=== PATIENT | male | born 1985 | race Caucasian/White ===

== ENCOUNTER 2018-05-16 18:50 | Outpatient (REF) | payer OTHER, SELFPAY ==
[2018-05-16 19:42] LABS: ALT 25 U/L (12-78); AST 17 U/L (15-37); Alkaline Phosphatase 61 U/L (46-116); Anion Gap 7.8 mmol/L (3-11); BUN 16 mg/dL (7-18); Bilirubin, Total 0.3 mg/dL (0.2-1.0); CO2 30.2 mmol/L (21.0-32.0); CREATININE 0.78 mg/dL (0.70-1.30); Calcium 9.3 mg/dL (8.5-10.1); Chloride 103 mmol/L (98-107); Cholesterol 138 mg/dL (50-200); Glucose 93 mg/dL (70-100); HDL Cholesterol 59 mg/dL (40-60); LDL CHOLESTEROL 72 mg/dL (<100); Potassium 4.4 mmol/L (3.5-5.1); Sodium 141 mmol/L (136-145); Total Protein 7.1 g/dL (6.4-8.2)
[2018-05-16 20:31] LABS: Triglyceride < 25 mg/dL (30-150)
== END 2018-05-16 19:10 ==
LOC: LBN 18:50
PROVIDERS: PCP Family Medicine; Visit Provider Family Medicine
DX: Z82.49 Family history of ischemic heart disease and other diseases of the circulatory system (principal)
CPT/HCPCS: 80053; 80061; 83721

== ENCOUNTER 2019-06-11 11:24 | Outpatient (REF) | payer OTHER, SELFPAY ==
[2019-06-11 13:06] LABS: BUN 9 mg/dL (7-18); CREATININE 0.82 mg/dL (0.70-1.30); Calcium 9.5 mg/dL (8.5-10.1); Chloride 102 mmol/L (98-107); Glucose 86 mg/dL (74-106); Potassium 4.6 mmol/L (3.5-5.1); Sodium 141 mmol/L (136-145)
== END 2019-06-11 11:44 ==
LOC: LBO 11:24
PROVIDERS: PCP Family Medicine; Visit Provider Student in an Organized Health Care Education/Training Program
DX: Z79.1 Long term (current) use of non-steroidal anti-inflammatories (NSAID) (principal)
CPT/HCPCS: 36415; 80048

== ENCOUNTER 2019-06-11 11:36 | Outpatient (CLI) | payer OTHER, SELFPAY ==
--- NOTE | 2019-06-11 11:56 | DI.RAD_ITS ---
EXAM: XR SHOULDER RT COMPLETE 2+V CLINICAL HISTORY: Worsening shoulder pn, r/o bony pathology M25.511 PAIN RT SHOULDER TECHNIQUE: COMPARISON: No exams were available for comparison FINDINGS: Five views were obtained. No bony or soft tissue abnormality seen. IMPRESSION:
== END 2019-06-11 11:56 ==
PROVIDERS: PCP Family Medicine; Visit Provider Student in an Organized Health Care Education/Training Program
DX: M25.511 Pain in right shoulder (principal)
CPT/HCPCS: 73030

== ENCOUNTER 2020-04-13 02:26 | Emergency (ER) | payer OTHER, SELFPAY ==
[2020-04-13 02:30] VITALS: BP 134/80; PULSE 108; RESP 18; TEMP 36.5; O2SAT 97
--- NOTE | 2020-04-13 02:30 | DI.CT_ITS ---
EXAM: CT HEAD CERVICAL SPINE WO CLINICAL HISTORY: intoxicated, head laceration. TECHNIQUE: Imaging Protocol: Axial computed tomography images with coronal and sagittal reformatted images were created and reviewed COMPARISON: No exams were available for comparison FINDINGS: BRAIN: There are no skull fractures nor fluid in the visualized paranasal sinuses. There is no evidence of intracranial hemorrhage, mass effect, or shift of midline structures. There are no extra-axial fluid collections. The ventricles are not enlarged or shifted and there is no blo od within the ventricular system nor within the basal cisterns. CERVICAL SPINE: There is no evidence of fracture nor listhesis. No significant prevertebral soft tissue swelling. N o facet malalignment evident. No significant osseous lesions evident. IMPRESSION: No acute intracranial findings on this noninfused CT scan of the brain. No evidence of cervical spine fracture, malalignment, nor acute compromise of the cervical spinal can al. RADIATION DOSE DELIVERED: 1,084.77mGy.cm Total DLP DATA REPOSITORY: All CT scans at this facility are submitted to the National Radiology Data Registry (NRDR) Dose Index Registry (DIR) with the [employer] (ACR). RADIATION OPTIMIZATION: All CT scans at this facility use at least one of these dose optimization te chniques: automated exposure control; mA and/or kV adjustment per patient size (includes targeted exa ms where dose is matched to clinical indication); or iterative reconstruction.
--- NOTE | 2020-04-13 02:34 | ED.GENADUL_ITS ---
Discharge Plan Disposition Patient Disposition: HOME Condition: Stable Discharge Details Clinical Impression: Alcohol intoxication, Laceration of head, Blunt head trauma Primary Care Provider: Preet Clancy ED Provider: William Valdes Discharge Instructions Instructions: Staple Care (ED) Additional Instructions: return in 7 days for evaluation for staple removal try to limit alcohol use to 1-2 drinks daily if you have severe worsening pain or new pain such as chest pain or abdominal pain return to the emergency department Medical Decision Making 34 yo male with no reported significant medical history comes in with his friend after he fell and hit his head. He had alcohol tonight and won't say how much. He apparently got out of the back of his friends car, slipped on ice and hit the back of his head on a house causing a laceration so his friend drove him here and reports no loc. He arrives intoxicated with smell of alcohol, unsteady gait. Moving all extremities without pain, no chest or back tenderness and no abdominal tenderness. Does have a 2cm laceration to posterior scalp that is not bleeding now. Suspect alcohol intoxication with lac but will image head and c spine to evaluate for traumatic injury given his intoxicated states. ct negative and 3 berto placed, released into care of his friend Jarad return precautions given Differential Diagnosis Differential Diagnosis: tbi, concussion, head laceration, alcohol intoxication Medical Records Medical records reviewed: Yes I reviewed the patient's medical records. Imaging Data Radiologic Study: Attestation: I personally reviewed and interpreted this imaging study as follows: Imaging: CT Scan Radiologist's impression: no acute findings HPI General Mode of arrival: ambulatory (unsteady gait) . Date/Time Provider Initiated Documentation: 04/13/20 02:27 . Limitations to Documentation: other (intoxicated) . Information obtained by: patient and family (friend) . History of Present Illness 34 year old M presents to the emergency department with the chief complaint of head laceration, described as moderate, Patient started experiencing this hour(s) (1) and it has been constant. No relieving factors improve symptom(s), No exacerbating factors reported . Patient did receive the following treatments prior to arrival, none Related Data Allergies Allergy/AdvReac Type Severity Reaction Status Date / Time No Known Allergies Allergy Verified 04/13/20 03:07 Review of Systems All systems reviewed & are unremarkable except as noted in HPI and below Constitutional Constitutional: Denies chills and Denies fever(s) Cardiovascular Cardiovascular: Denies chest pain and Denies dyspnea Respiratory Respiratory: Denies cough and Denies dyspnea Gastrointestinal Gastrointestinal: Denies abdominal pain, Denies nausea and Denies vomiting Musculoskeletal Musculoskeletal: Denies joint swelling Psychiatric Psychiatric: Denies depression [facility] Medical History (Updated 04/13/20 @ 02:40 by William Valdes MD) Tobacco use disorder Family History Father Alcohol abuse Mother Anxiety Depression Maternal Grandfather Heart disease Hyperlipidemia Hypertension Paternal Grandfather Heart disease Hyperlipidemia Hypertension Maternal Grandmother Diabetes Paternal Uncle Cancer Social History Smoking/Tobacco Use Status: Current every day Tobacco Type: cigarettes Quit status: not considering quitting Smoking risk assessment performed?: Yes Alcohol Intake: current Alcohol Intake frequency: 3 or more drinks per day Alcohol type: beer Substance use type: does not use Adopted: No Household members: significant other Number of Children: 0 current occupation: [employer] What type of physical activity do you participate in: walking and other Details: hiking Seatbelt use: always Do you feel safe at home: Yes Do you feel safe in your relationship?: Yes Exam Const General: no acute distress Orientation: alert HENMT Head: no palpable skull fracture Ears: external ears normal General nose exam: external nose normal Mouth: moist mucous membranes Eyes General: appearance normal, both eyes and all related structures Neck Neck: normal visual inspection Resp Effort & Inspection: normal respiratory effort and able to speak in complete sentences Cardio Rate: regular rate Skin General skin exam: no rashes or lesions noted Neuro General: patient alert Extrem General: normal to inspection Procedures Laceration Laceration 1: Site: scalp Size (cm): 2 Description: linear Depth: simple, single layer Pre-repair: wound explored and irrigated extensively Skin layer closed with: other (3 berto)
--- NOTE | 2020-04-13 03:07 | DI.VRAD_ITS ---
PROCEDURE INFORMATION: Exam: CT Head Without Contrast Exam date and time: 04/13/2020 2:47 AM Age: 34 years old Clinical indication: Injury or trauma; Fall; Blunt trauma (contusions or hematomas); Consciousness not specified; Injury date: 04/13/20; Injury details: Fell on ice, intoxicated, head laceration TECHNIQUE: Imaging protocol: Computed tomography of the head without contrast. Radiation optimization: All CT scans at this facility use at least one of these dose optimization techniques: automated exposure control; mA and/or kV adjustment per patient size (includes targeted exams where dose is matched to clinical indication); or iterative reconstruction. COMPARISON: No relevant prior studies available. FINDINGS: Brain: Normal. No hemorrhage. Unremarkable white matter. No mass effect. Cerebral ventricles: No ventriculomegaly. Bones/joints: Unremarkable. No acute fracture. Paranasal sinuses: Visualized sinuses are unremarkable. No fluid levels. Mastoid air cells: Visualized mastoid air cells are well aerated. Soft tissues: Unremarkable. IMPRESSION: No acute intracranial abnormality. PROCEDURE INFORMATION: Exam: CT Cervical Spine Without Contrast Exam date and time: 04/13/2020 2:47 AM Age: 34 years old Clinical indication: Injury or trauma; Fall; Blunt trauma (contusions or hematomas); Consciousness not specified; Injury date: 04/13/20; Injury details: Fell on ice, intoxicated, head laceration TECHNIQUE: Imaging protocol: Computed tomography images of the cervical spine without contrast. Radiation optimization: All CT scans at this facility use at least one of these dose optimization techniques: automated exposure control; mA and/or kV adjustment per patient size (includes targeted exams where dose is matched to clinical indication); or iterative reconstruction. COMPARISON: No relevant prior studies available. FINDINGS: Vertebrae: No acute fracture. Normal alignment. C2-C3: No significant disc protrusion. No severe spinal canal stenosis. No significant neural foraminal narrowing. C3-C4: No significant disc protrusion. No severe spinal canal stenosis. No significant neural foraminal narrowing. C4-C5: No significant disc protrusion. No severe spinal canal stenosis. No significant neural foraminal narrowing. C5-C6: No significant disc protrusion. No severe spinal canal stenosis. No significant neural foraminal narrowing. C6-C7: No significant disc protrusion. No severe spinal canal stenosis. No significant neural foraminal narrowing. C7-T1: No significant disc protrusion. No severe spinal canal stenosis. No significant neural foraminal narrowing. Soft tissues: Unremarkable. Lungs: Lung apices are normal. IMPRESSION: No acute findings. Dictated and Authenticated by: Bruno العلي MD. Ordering:FANY Thomas MD
[2020-04-13 03:18] VITALS: BP 134/80; PULSE 108; RESP 18; TEMP 36.5; O2SAT 97
== END 2020-04-13 03:20 | disposition home or self-care (01) ==
PROVIDERS: Emergency Provider Emergency Medicine; PCP Family Medicine
DX: S01.01XA Laceration without foreign body of scalp, initial encounter (principal); F10.120 Alcohol abuse with intoxication, uncomplicated; W00.0XXA Fall on same level due to ice and snow, initial encounter; W22.8XXA Striking against or struck by other objects, initial encounter
CPT/HCPCS: 99284; 70450; 72125

== ENCOUNTER 2020-07-28 02:42 | Outpatient (CLI) | payer OTHER, SELFPAY ==
[2020-07-29 01:27] LABS: COVID-19 RT-PCR UVMMC Result Negative (Negative)
== END 2020-07-28 02:43 | disposition home or self-care (01) ==
PROVIDERS: PCP Family Medicine; Visit Provider Family Medicine
DX: Z20.822 Contact with and (suspected) exposure to COVID-19 (principal)
CPT/HCPCS: U0003

== ENCOUNTER 2021-03-07 09:05 | Outpatient (CLI) | payer OTHER, SELFPAY ==
[2021-03-07 21:52] LABS: COVID-19 RT-PCR UVMMC Result Negative (Negative)
== END 2021-03-07 09:06 | disposition home or self-care (01) ==
PROVIDERS: PCP Family Medicine; Visit Provider Nurse Practitioner Family
DX: Z20.822 Contact with and (suspected) exposure to COVID-19 (principal)
CPT/HCPCS: U0003

== ENCOUNTER 2022-10-29 06:14 | Day surgery (SDC) | payer OTHER, SELFPAY ==
[2022-10-29] VITALS (11 sets, daily range): BP systolic 92–126; BP diastolic 49–88; PULSE 52–75; RESP 13–21; TEMP 36.3–36.8; O2SAT 96–98; BMI 19.7
[2022-10-29] MEDS: Lactated Ringers 1,000 ML 80 ML IV (06:58)
--- NOTE | 2022-10-29 06:58 | HPE_ITS ---
Date of service: 10/29/22 Time of Service: 06:59 Assessment and Plan Assessment and plan (1) Varicocele: Status: Acute Assessment and plan: Since he is symptomatic, we will move ahead with left varicocelectomy. History of Present Illness History of Present Illness Chief Complaint: Left varicocele Narrative: This is a 37-year-old gentleman who is known to our office as he had a vasectomy about 8 months ago. He comes in now with complaints of left sided scrotal discomfort.? He actually had an episode of left-sided scrotal discomfort even before the vasectomy.? The discomfort improved on its own. In the past 6 weeks, he has had more and more left-sided pain.? The pain seems worse when he lifts something heavy.? He tells me that just the other day, he lifted a 45 kg box at work and had to be sent home afterwards because of the pain. The pain will extend up into the groin.? He is not certain if the pain crosses into his leg as he has frequent leg cramps anyway. He has not seen any external abnormalities such as redness or bruising.? While lifting tends to make the pain worse, ice and rest makes things better. Ultrasound documents the presence of a left varicocele Review of Systems Narrative: No fevers or chills No vision change or dysphasia No diabetes or thyroid No shortness of breath, cough or hemoptysis No chest pain or palpitations No nausea, vomiting, hepatitis, ulcers, jaundice, diarrhea or constipation No seizures, strokes or peripheral neuropathy No bleeding disorders or anemia No gout PFSH All Active Problems Varicocele (Acute) Groin strain (Acute) Nerve entrapment syndrome of right upper extremity (Acute) Numbness (as if asleep) with RT shoulder pain & upper back pain, 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 Tobacco use disorder (Chronic) Medical History Alcohol intoxication blunt head trauma Post concussion syndrome Family History Father Alcohol abuse Mother Anxiety Depression Maternal Grandfather Heart disease Hyperlipidemia Hypertension Paternal Grandfather Heart disease Hyperlipidemia Hypertension Alcohol abuse Maternal Grandmother Diabetes Paternal Uncle Cancer Paternal Grandmother Diabetes Brother Anxiety Drug abuse Social History Smoking/Tobacco Use Status: Current every day Tobacco Type: cigarettes Tobacco: How many years used: 15 Quit status: considering quitting Smoking risk assessment performed?: Yes Alcohol Intake: current Alcohol Intake frequency: 3 or more drinks per day Alcohol type: beer Substance use type: does not use Adopted: No Caregiver/Support person: No Household members: spouse and children Housing: house Number of Children: 1 Communication Needs: None Education Level: high school Do you need help understanding health information?: Rarely 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 Pets and animals: Yes Pets and animals: dog(s) Sexually active: Yes Do you think of yourself as: straight/heterosexual Current gender identity: male What is your relationship status?: How often do you talk on the phone with friends or family?: three or more times per week How often do you get together with friends or relatives?: twice per week Do you belong to any clubs or organized social groups?: no Panel score (0-1 are the most socially isolated patients): 2 What type of physical activity do you participate in: walking and other Details : hiking Duration: 45-60 minutes/day Frequency: daily Alee/Methodist: None Special alee needs: No Seatbelt use: always Helmet use: Yes Drive intox or ride w/intox team cdl driver: No Do you feel safe at home: Yes Do you feel safe in your relationship?: Yes Meds Allergies and Home Medications Allergies Allergy/AdvReac Type Severity Reaction Status Date / Time No Known Allergies Allergy Verified 10/12/22 10:35 Home Medications Medication Instructions Recorded Confirmed Type ketorolac 10 mg tablet 10 mg PO PRN PRN 10/26/22 10/29/22 History Exam Const General: cooperative Resp Effort & Inspection: normal respiratory effort Auscultation: clear to auscultation bilaterally Cardio Rate: regular rate Rhythm: regular rhythm GI Inspection: normal to inspection Percussion: normal to percussion Scrotum: varicocele (left) Neuro General: patient alert, patient awake and patient oriented x3 Results Last Vital Signs Temp 36.8 C 10/29/22 06:26 Pulse 75 10/29/22 06:26 Resp 16 10/29/22 06:26 BP 126/88 10/29/22 06:26 Pulse Ox 97 10/29/22 06:26 Time Spent Time spent with Patient: <40 minutes Time was spent: other
--- NOTE | 2022-10-29 06:58 | ANES.PREOP_ITS ---
General Info Date of Service Date Performed: 10/29/22 Height: 5 ft 11 in Weight: 64.2 kg Body Mass Index (BMI): 19.7 Surgical Procedure: Operation Date: 10/29/22 07:40 Proposed Procedure Side Surgeon p Varicocelectomy Left Luigi Juan MD Meds Allergies and Home Medications Allergies Allergy/AdvReac Type Severity Reaction Status Date / Time No Known Allergies Allergy Verified 10/12/22 10:35 Home Medication Medication Instructions Recorded ketorolac 10 mg tablet 10 mg PO PRN PRN 10/26/22 Current Visit Medications: Current Medications Generic Name Dose Route Start Last Admin Trade Name Freq PRN Reason Stop Dose Admin Ringer's Solution 1,000 mls @ 80 mls/hr 10/29/22 06:00 IV 10/29/22 23:59 INFUSION SEAN Cefazolin Sodium/Dextrose 2 gm in 50 mls @ 100 mls/hr 10/29/22 06:00 Ancef Duplex IVPB 10/29/22 23:59 PREOP SEAN IV Miscellaneous Supplies 1 each 10/29/22 06:00 Iv Access IV 10/29/22 23:59 DIRECTED SEAN Sodium Chloride 0 ml 10/29/22 06:00 Normal Saline Flush 10 Ml Syr IV 10/29/22 23:59 PRN PRN Sodium Chloride 0 ml 10/29/22 06:00 Normal Saline 10 Ml Vial IJ 10/29/22 23:59 DIRECTED PRN Sterile Water 0 ml 10/29/22 06:00 Water,Injection,Sterile 10 Ml Vial IJ 10/29/22 23:59 DIRECTED PRN PFSH Active Problems Active Problems: Problem Status Onset Code Varicocele I86.1 Groin strain S76.219A Nerve entrapment syndrome of right upper extremity G56.91 Tobacco use disorder F17.200 Medical History Medical History Alcohol intoxication blunt head trauma Post concussion syndrome Tobacco Smoking/Tobacco Use Status: Current every day Tobacco Type: cigarettes Passive smoking exposure: Yes Alcohol Alcohol Intake: current Alcohol intake frequency: 3 or more drinks per day Alcohol type: beer Substance Use Substance use type: does not use Vital Signs and Lab Results Vital Signs Most Recent Vital Signs in EMR: Most Recent Vital Signs Temp Pulse Resp BP Pulse Ox 36.8 C 75 16 126/88 97 10/29/22 06:26 10/29/22 06:26 10/29/22 06:26 10/29/22 06:26 10/29/22 06:26 Lab Results Blood Type / Crossmatch: No Data to Display Complete Blood Count: No Data to Display Complete Metabolic Panel: No Data to Display Liver Function Panel: No Data to Display Coagulation Panel: No Data to Display Cardiac Panel: No Data to Display Arterial Blood Gas: No Data to Display Venous Blood Gas: No Data to Display Pancreas Panel: No Data to Display Thyroid Panel: No Data to Display Infectious Disease: No Data to Display Blood Cultures: No Data to Display Toxicology Panel: No Data to Display Anesthesia Assessment and Plan Anesthesia History Personal History: No History of General Anesthesia Family History: No Family History of Anesthesia Complications Exercise Tolerance Exercise Tolerance: Metabolic Equivalents>4 Pertinent Negatives Pertinent Negatives: No Symptoms of GERD, No Major Cardiovascular Symptoms or C omplaints, No Major Pulmonary Symptoms or Complaints and No History of CVA/TIA Cardiac & Pulmonary Exam Cardiac Exam: Normal S1/S2 Heart Sounds Pulmonary Exam: Clear Bilateral Breath Sounds Implantable Cardiac Device Does patient have a Pacemaker or an ICD?: No Airway Exam Known Difficult Airway: No Mallampati Class: 2 Mouth Opening: Normal (> 3cm) Thyromental Distance: Greater than 3 cm Neck Range of Motion: Full ROM Neck Circumference: Normal Teeth Condition: Normal Dentition and Loose or Chipped (tooth #23 loose, still a baby tooth) ASA Classification ASA Score: ASA 2 Emergency Case?: No NPO Status NPO Status: NPO Clears >2 hours, Solids >8 hours Anesthesia Plan Resuscitation Status: Full Code Anesthesia Technique: General Anesthesia Airway Planned: LMA Monitors Used: Standard Monitors Preoperative Comments:: Smoker
[2022-10-29] MEDS: ceFAZolin 2 GM/50 ML BAG IVPB (07:39)
[2022-10-29] MEDS: Bupivacaine 0.25% Pres-Free 30 ML VIAL (08:12)
--- NOTE | 2022-10-29 08:24 | W.PM.DSUDISC ---
Date of service: 10/29/22 Time of Service: 08:24 Discharge Plan Disposition Patient Disposition: Home Condition: Stable Discharge Details Reason For Visit: varicocele Attending Provider: Luigi Juan Primary Care Provider: Preet Clancy Home Meds and New Rx's Prescriptions: New tramadol 50 mg tablet 50 mg PO Q6H PRNQty: 20 0RF No Action ketorolac 10 mg tablet 10 mg PO PRN PRN Discharge Instructions Additional Instructions: no lifting over 10 to 20 pounds for 2 weeks followup appt @ 2 to 3 weeks Activity:: no lifting over 10 pounds for 2 weeks Remove Dressings/Wound Care:: 24 hours Shower/Bathe:: 24 hours Diet:: As Tolerated Discharge Orders Discharge Orders: Discharge Order (Routine); Ordered 10/29/22 Ordered By: Luigi Juan DS: Diagnosis Discharge Diagnosis (1) Varicocele: Status: Acute
--- NOTE | 2022-10-29 08:28 | W.PM.OP ---
Date of service: 10/29/22 Time of Service: 08:28 Operative Note Operative Note DATE OF PROCEDURE: 10/29/22 PRE-OP DIAGNOSIS: Left varicocelectomy POST-OP DIAGNOSIS: same PROCEDURE: left varicocelectomy SURGEON: Luigi Juan ANESTHESIA TYPE: Local By Surgeon and General LMA/ETT Refer to Anesthesia Record ESTIMATED BLOOD LOSS: 10 PATHOLOGY: none sent COMPLICATIONS: None Patient was transported to: PACU Implants: none Indications: This is a 37-year-old gentleman who has a history of a left scrotal discomfort. He had a vasectomy in the past, but his pain actually preceded the vasectomy. On evaluation, he was found to have a left varicocele that seemed to be the trigger for his pain. He presents for varicocelectomy Findings: Multiple dilated left spermatic veins Procedure Description: The patient was brought to the operating room on 10/29/2022. After successful induction of general anesthesia, he was placed in the supine position. He was given a dose of preoperative IV antibiotics. His lower abdomen and genitalia were prepped and draped. The left inguinal incision was made and extended down through the subcutaneous fat until the aponeurosis of the external oblique muscle was identified. The aponeurosis was opened in the direction of its fibers and the spermatic cord was visualized below the aponeurosis. The spermatic cord was secured with a Jeannie drain. We began our dissection of the spermatic cord anteriorly until we came down upon multiple dilated spermatic veins. The dissection was performed using both blunt and sharp dissection. Each dilated vein was isolated with a right angle and divided between 4-0 silk sutures. The vas deferens and spermatic artery were spared. The dissection was performed using loupe magnification. At the completion of the procedure, no additional dilated veins were identified. The cord was released and brought back beneath the aponeurosis of the external oblique. A cord block was performed using quarter percent Marcaine. The aponeurosis was closed using a running 3-0 Vicryl suture. The skin was closed with a subcuticular 4-0 Vicryl suture. Skin glue was then applied to the wound. The patient tolerated this procedure well with no complications.
--- NOTE | 2022-10-29 09:07 | W.ANESPOSTOP ---
Postoperative Evaluation Date, Time and Location Date Performed: 10/29/22 Time Performed: 09:08 Patient Location: PACU Vital Signs Most Recent Imported Vital Signs: Most Recent Vital Signs Temp Pulse Resp BP Pulse Ox 36.6 C 64 21 105/64 98 10/29/22 09:00 10/29/22 09:00 10/29/22 09:00 10/29/22 09:00 10/29/22 09:00 Pain Score Most Recent Pain Score: Most Recent Pain Score Pain Level 7 10/29/22 09:00 Assessment Mental Status: Awake (Alert & Oriented to Patient Baseline) Airway and Respiratory Function: Patent airway with normal (patient baseline) respiratory exam Cardiovascular Function: Hemodynamically Stable Hydration Status: Adequately Hydrated Nausea & Vomiting: No Nausea or Vomiting Pain: Pain is Moderate or Severe Postoperative Pain Management: Pain being addressed with medication Peripheral Nerve Block: Patient did not receive a nerve block
[2022-10-29] MEDS: HYDROmorphone 2 MG/ML SYR IVP (09:08)
[2022-10-29] MEDS: Normal Saline 10 ML VIAL IJ (09:09)
== END 2022-10-29 10:25 | disposition home or self-care (01) ==
PROVIDERS: PCP Family Medicine; Visit Provider Urology
PROC: (CPT 55530; principal; 2022-10-29 07:30)
DX: I86.1 Scrotal varices (principal); F17.210 Nicotine dependence, cigarettes, uncomplicated
CPT/HCPCS: 55530; J0690; J1100; J1170; J1885; J2001; J2405; J2704

== ENCOUNTER 2023-05-01 18:46 | Emergency (ER) | payer OTHER, SELFPAY ==
[2023-05-01] VITALS (76 sets, daily range): BP systolic 119–151; BP diastolic 76–90; PULSE 62–88; RESP 12–25; TEMP 37–37.2; O2SAT 96–100
--- NOTE | 2023-05-01 18:45 | RT.EKG_ITS ---
APPROVED REPORT Exam: Resting ECG Reason for Exam: Chest pain Patient Location: E HR:78 bpm ECG Measurements Heart Rate 78 AXIS TX 121 P 77 QRSd 99 QRS 67 QT 365 T 70 QTc 415 Conclusion Sinus rhythm...normal P axis, V-rate 60- 99 ST elev, probable normal early repol pattern...ST elevation, age<55 sinus rhythm, normal axis, normal intervals, non ischemic
--- NOTE | 2023-05-01 18:45 | DI.RAD_ITS ---
Exam(s) XR CHEST 2V PA LATERAL EXAM: XR CHEST 2V PA LATERAL CLINICAL HISTORY: chest pain, sob TECHNIQUE: 2D digital imaging was performed. COMPARISON: CR RIGHT RIBS TO INCLUDE CXR from 06/09/2007 FINDINGS: Leads overlie the chest. HEART: Normal size. Aorta: Not dilated. PULMONARY VASCULATURE: Normal. LUNGS: Clear. PLEURAL SPACE: No pleural effusion or pneumothorax. BONE:Unremarkable for age. Soft tissues: Unremarkable. IMPRESSION: No acute abnormality. DATA REPOSITORY: RADIATION DOSE DELIVERED:
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
[2023-05-01] MEDS: Aspirin 81 MG CHEW 324 MG CH (19:18)
[2023-05-01] MEDS: ACETAMINOPHEN 1,000 MG/100 ML BTL 400 MG IVPB (19:19)
[2023-05-01] MEDS: Ketorolac 15 MG/ML VIAL IVP (19:20)
[2023-05-01 19:21] LABS: Abs Immature Grans 0.02 10^3/uL (0.0-0.06); Absolute Basophil Count 0.11 10^3/uL (0.0-0.2); Absolute Eosinophil Count 0.14 10^3/uL (0.0-0.7); Absolute Monocyte Count 0.87 10^3/uL (0.1-0.8); Absolute Neutrophil Count 5.59 10^3/uL (1.2-6.7); Basophils % 1.2; Eosinophils % 1.6; HCT 41.3 % (40.0-50.0); HGB 14.6 g/dL (13.5-17.5); Immature Grans % 0.2; Lymphocytes % 25.5; MCHC 35.4 % (32.0-36.0); MCV 93 fL (80-95); MPV 9.7 fL (8.0-11.0); Monocytes % 9.6; Neutrophils % 61.9; Platelet Count 209 10^3/uL (130-400); RBC 4.42 10^6/uL (4.36-5.78); RDW 11.9 % (11.8-14.1); RDW-SD 41.4 fL; WBC 9.03 10^3/uL (4.4-10.8)
[2023-05-01 19:41] LABS: ALT 29 U/L (16-63); AST 28 U/L (15-37); Albumin 4.2 g/dL (3.4-5.0); Alkaline Phosphatase 72 U/L (46-116); Anion Gap 9.1 mmol/L (3-11); BUN 9 mg/dL (7-18); Bilirubin, Total 0.4 mg/dL (0.2-1.0); CO2 28.9 mmol/L (21.0-32.0); CREATININE 0.8 mg/dL (0.70-1.30); Calcium 9.3 mg/dL (8.5-10.1); Chloride 99 mmol/L (98-107); Estimated GFR 118.36 (mL/min/1.73m2); Glucose 81 mg/dL (74-106); Magnesium 1.9 mg/dL (1.8-2.4); Potassium 3.4 mmol/L (3.5-5.1); Sodium 137 mmol/L (136-145); Total Protein 7.8 g/dL (6.4-8.2); Troponin I < 50 ng/L (<or=60)
[2023-05-01 19:48] LABS: D-Dimer 218 ng/mlFEU (<500)
[2023-05-01 19:59] LABS: NT-proBNP 29 pg/mL (<300)
[2023-05-01 20:02] LABS: Bilirubin Negative (Negative); Blood Negative (Negative); Clarity Clear (Clear); Glucose Negative (Negative); Ketones Negative (Negative); Leukocyte Esterase Negative (Negative); Nitrite Negative (Negative); Specific Gravity <= 1.005 (1.005-1.025); Urobilinogen 0.2 mg/dL (Up to 0.2); pH 6.5 (5-8)
--- NOTE | 2023-05-01 20:17 | DI.VRAD_ITS ---
PROCEDURE INFORMATION: Exam: XR Chest Exam date and time: 05/01/2023 7:35 PM Age: 37 years old Clinical indication: Shortness of breath; Chest wall pain TECHNIQUE: Imaging protocol: Radiologic exam of the chest. Views: 2 views. COMPARISON: CT HEAD CERVICAL SPINE WO 04/13/2020 2:44 AM FINDINGS: Lungs: Normal pulmonary expansion. Pulmonary vasculature grossly normal. No gross pulmonary infiltrates or edema pattern. Pleural spaces: No pleural effusion. No pneumothorax. Heart/Mediastinum: Heart size normal. No tracheal/mediastinal shift. Bones/joints: No acute osseous abnormalities are identified. IMPRESSION: No acute thoracic process. Dictated and Authenticated by: Jonathan Waldron MD. Ordering:MIKY Sharpe MD
--- NOTE | 2023-05-01 21:03 | DI.RAD_ITS ---
Exam(s) XR LUMBAR SPINE AP, LAT EXAM: XR LUMBAR SPINE AP, LAT CLINICAL HISTORY: right lower ext radiculopathy, low back pain. TECHNIQUE: 2D digital imaging was performed. Five views. COMPARISON: No exams were available for comparison FINDINGS: BONES: No fracture or destructive lesion. Vertebral body heights are maintained. No facet hypertroph y identified at L5-S1. DISKS: Severe narrowing at L5-S1 with prominent endplate osteophytes. The remaining intervertebral d isc spaces are maintained. ALIGNMENT: Lumbar spinal alignment is within normal limits. SOFT TISSUE: Normal. IMPRESSION: Severe degenerative changes of the L5-S1 disc. DATA REPOSITORY: RADIATION DOSE DELIVERED:
--- NOTE | 2023-05-01 21:06 | DI.VRAD_ITS ---
PROCEDURE INFORMATION: Exam: XR Lumbosacral Spine Exam date and time: 05/01/2023 8:54 PM Age: 37 years old Clinical indication: Patient HX: Right lower ext radiculopathy, low back pain TECHNIQUE: Imaging protocol: Radiologic exam of the lumbosacral spine. Views: 2 or 3 views. COMPARISON: No relevant prior studies available. FINDINGS: Bones/joints: No fracture. Normal alignment. Severe disc degenerative changes L5-S1 with disc space narrowing and moderate anterior spurring. No pars defects. SI joints are unremarkable. Soft tissues: No gross soft tissue abnormalities. Gastrointestinal tract: Moderate bowel gas. IMPRESSION: 1. Severe disc degenerative changes L5-S1. 2. No evidence of fracture or traumatic subluxation. Dictated and Authenticated by: Jonathan Waldron MD. Ordering:MIKY Sharpe MD
[2023-05-01] MEDS: Normal Saline Flush 10 ML SYR IVP (21:29)
[2023-05-01] MEDS: Lidocaine 5% Patch 2 PATCH TP ×2 (21:55→22:02)
[2023-05-01] MEDS: predniSONE 20 MG TAB 60 MG PO (22:00)
[2023-05-01 22:17] LABS: Troponin I < 50 ng/L (<or=60)
--- NOTE | 2023-05-02 10:19 | NUR.NOTE ---
Accessed chart to determine orders for EKG and to determine whether or not one needs to be cancelled. Nursing Note:
== END 2023-05-01 22:36 | disposition home or self-care (01) ==
PROVIDERS: Emergency Provider Nurse Practitioner Acute Care; PCP Family Medicine
DX: M47.26 Other spondylosis with radiculopathy, lumbar region (principal); R07.89 Other chest pain; F17.210 Nicotine dependence, cigarettes, uncomplicated; Z11.52 Encounter for screening for COVID-19; Z82.49 Family history of ischemic heart disease and other diseases of the circulatory system
CPT/HCPCS: 36415; 80053; 87426; 93005; 96374; 96375; 99283; 71046; 72100; 81003; 83735; 83880; 84484; 85025; 85379; 93010; J0131; J1885; J7512

== ENCOUNTER → 2023-05-21 02:04 | Outpatient (CLI) | payer OTHER, SELFPAY ==
--- NOTE | 2023-05-21 07:15 | DI.MRI_ITS ---
Exam(s) MR LUMBAR SPINE WO EXAM: MR LUMBAR SPINE WO CLINICAL HISTORY: RLE radiculopathy, DDD severe XR,leg numbness,lumbar back pain,m54.16,r20.0. TECHNIQUE: Multiplanar multisequence MRI of the Lumbar spine was performed. COMPARISON: CR,XR XR LUMBAR SPINE AP, LAT from 05/01/2023 FINDINGS: Conus medullaris is at normal level. There is no evidence of conus mass nor subjacent clumping of in trathecal nerve roots to suggest arachnoiditis. The distal thecal sac appears unremarkable.There is no evidence of Tarlov intrasacral cysts nor other significant findings within the sacral canal Bones:There are no fractures nor ominous osseous lesions in the lumbar vertebral bodies and visualize d sacrum. With respect to the individual levels... T12-L1: Unremarkable L1-2: Normal disc height and signal. There is mild central-right paracentral annular bulging. No pro minent disc herniation. No central canal stenosis nor foraminal stenosis evident at this level. No significant facet arthropathy. L2-3: Normal disc height. No disc herniation nor central canal stenosis.No foraminal stenosis.No face t arthropathy. L3-4: Normal disc height. No disc herniation or central canal stenosis.No foraminal stenosis.No face t arthropathy. L4-5: Normal disc height and signal. No disc herniation or central canal stenosis. No foraminal akhil nosis. No facet arthropathy. L5-S1: This level exhibits chronic disc space narrowing. Mild posterior annular bulging with superim posed small central subligamentous disc bulge. This does not efface the anterior thecal sac and ther e is no central canal stenosis. However, there is foraminal stenosis which is more prominent on the left side due to the vertical height loss. The exiting nerve root is impinged between the annular bu lging and overlying left pedicle. On the opposite side there is slightly milder foraminal stenosis f or similar regions. Soft tissues: There is mild hydronephrosis on the right side which appears to be due to an element o f obstruction at the UPJ IMPRESSION: 1. There is advanced chronic disc space narrowing at L5-S1 level. Mild posterior central annular bul ging and a central subligamentous small disc herniation which does not indent the thecal sac. Also a t this level is vertical foraminal stenosis, more prominent on the left side. 2. There is mild annular bulging at L1-2 level but without prominent disc herniation at this level an d no central nor foraminal stenosis. 3. There is no significant facet arthropathy in the lumbosacral spinal column. Incidentally noted is mild hydronephrosis of the right kidney which appears to be due to an element o f obstruction at the ureteropelvic junction. DATA REPOSITORY:
== END ==
PROVIDERS: PCP Family Medicine; Visit Provider Nurse Practitioner
DX: M51.17 Intervertebral disc disorders with radiculopathy, lumbosacral region; N13.39 Other hydronephrosis
CPT/HCPCS: 72148

== ENCOUNTER → 2023-06-12 00:46 | Outpatient (CLI) | payer OTHER, SELFPAY ==
--- NOTE | 2023-06-12 10:45 | DI.NM_ITS ---
Exam(s) NM MAG 3 RENOGRAM W LASIX CLINICAL HISTORY: right hydronephrosis N13.30. COMPARISON: MR MR LUMBAR SPINE WO from 05/21/2023 US US RENAL from 05/29/2023 recent lumbar spine MRI 05/21/2023 also reviewed. EXAMINATION: Dose: 10 mCi Tc-99m MAG3 Images: Immediately for 1 minute followed by dynamic for 45 minutes. 20mg Lasix was administered afte r peak uptake in the renal cortex at approximately 12 min. FINDINGS: There is normal uptake of radiopharmaceutical by the kidneys. There is rapid excretion from the left kidney with no evidence of obstruction on the left side. The time activity curve for the right kidney reveals an obstructive pattern. However, following intr avenous injection furosemide/Lasix at 20 minutes the slope of the curve turns downward, indicating ex cretion, albeit exhibiting a somewhat shallow slope. Delayed images reveal complete excretion of radiopharmaceutical from the left kidney and remaining ra diopharmaceutical activity in the right renal pelvis and infundibulum I. 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 Left kidney is unremarkable.
== END ==
PROVIDERS: PCP Family Medicine; Visit Provider Urology
DX: N13.30 Unspecified hydronephrosis (principal)
CPT/HCPCS: 78708; A9540

== ENCOUNTER 2023-11-30 21:24 | Observation (INO) | payer OTHER, SELFPAY ==
[2023-11-30] VITALS (26 sets, daily range): BP systolic 120–148; BP diastolic 70–85; PULSE 93–123; RESP 5–31; TEMP 35–38.2; O2SAT 94–99
--- NOTE | 2023-11-30 21:15 | RT.EKG_ITS ---
APPROVED REPORT Exam: Resting ECG Reason for Exam: chest pain Patient Location: E HR:126 bpm ECG Measurements Heart Rate 126 AXIS [place] 106 P 68 QRSd 89 QRS 46 QT 285 T 44 QTc 413 Conclusion Sinus tachycardia...rate> 99 Narrow complex sinus tachycardia rate of 126. Normal axis. QTc within normal limits. Short [place] inte rval at 106 ms. No obvious delta wave. Compared to prior dated last year [place] interval has shortened. No acute injury pattern.
--- NOTE | 2023-11-30 21:45 | DI.RAD_ITS ---
Exam(s) XR CHEST 2V PA LATERAL EXAM: XR CHEST 2V PA LATERAL CLINICAL HISTORY: fever TECHNIQUE: 2D digital imaging was performed of the chest. Two images were obtained. PA and lateral views were obtained. COMPARISON: CR,XR XR CHEST 2V PA LATERAL from 05/01/2023 FINDINGS: MEDIASTINUM: Normal. HEART: Normal. PULMONARY VASCULATURE: Normal. LUNGS: Clear. PLEURAL SPACE: No pleural effusion or pneumothorax. BONE:Within normal limits for the patient's age. OTHER FINDINGS:Normal. IMPRESSION: No acute pulmonary findings. DATA REPOSITORY: RADIATION DOSE DELIVERED:
[2023-11-30 22:08] LABS: Lactate 1.5 mmol/L (0.6-1.4)
[2023-11-30 22:14] LABS: Abs Immature Grans 0.02 10^3/uL (0.0-0.06); Absolute Basophil Count 0.04 10^3/uL (0.0-0.2); Absolute Eosinophil Count 0.01 10^3/uL (0.0-0.7); Absolute Lymphocyte Count 0.42 10^3/uL (1.2-3.4); Absolute Neutrophil Count 3.67 10^3/uL (1.2-6.7); Basophils % 0.9 %; Eosinophils % 0.2 %; HCT 40.7 % (40.0-50.0); Immature Grans % 0.4 %; Lymphocytes % 9.4 %; MCH 32.4 pg (27.0-33.0); MCHC 34.4 % (32.0-36.0); MCV 94 fL (80-95); MPV 10.7 fL (8.0-11.0); Monocytes % 6.7 %; Neutrophils % 82.4 %; Platelet Count 105 10^3/uL (130-400); RBC 4.32 10^6/uL (4.36-5.78); RDW 11.9 % (11.8-14.1); RDW-SD 41.1 fL; WBC 4.46 10^3/uL (4.4-10.8)
[2023-11-30 22:27] LABS: C-Reactive Protein 12.83 mg/dL (<or=0.5)
[2023-11-30 22:30] LABS: ALT 97 U/L (16-63); Albumin 3.8 g/dL (3.4-5.0); Alkaline Phosphatase 130 U/L (46-116); Anion Gap 12.3 mmol/L (3-11); BUN 18 mg/dL (7-18); Bilirubin, Total 0.66 mg/dL (0.2-1.0); CO2 25.7 mmol/L (21.0-32.0); Calcium 9.2 mg/dL (8.5-10.1); Chloride 97 mmol/L (98-107); Estimated GFR 100.03 (mL/min/1.73m2); Glucose 125 mg/dL (74-106); Magnesium 1.4 mg/dL (1.8-2.4); Potassium 3.5 mmol/L (3.5-5.1); Sodium 135 mmol/L (136-145); Total Protein 8.2 g/dL (6.4-8.2)
[2023-11-30 22:36] LABS: Troponin I 72 ng/L (< or =60)
[2023-11-30 22:44] LABS: AST 120 U/L (15-37)
[2023-11-30 22:47] LABS: Procalcitonin 0.8 ng/mL
[2023-11-30] MEDS: Aspirin 81 MG CHEW 324 MG CH (22:52)
[2023-11-30] MEDS: ACETAMINOPHEN 1,000 MG/100 ML BTL 400 MG IVPB (22:54)
[2023-11-30] MEDS: Lactated Ringers 1,000 ML 1000 ML IV (22:54)
--- NOTE | 2023-11-30 23:05 | ED.GENADUL_ITS ---
Discharge Plan Disposition Patient Disposition: Admit to [facility] Discharge Details Clinical Impression: Elevated troponin I level, Sepsis, Elevated LFTs, Thrombocytopenia, History of alcohol use Admit Date/Time: 11/30/23 23:51 Admit Provider: William Guzmán Attending Provider: William Guzmán Primary Care Provider: Preet Clancy ED Provider: Zeenat Sheldon Discharge Data Discharge Date/Time-TO BE ENTERED AT DEPARTURE: 12/01/23 01:10 HPI General Date/Time Provider Initiated Documentation: 11/30/23 21:49 . HPI Narrative: This 38-year-old male presents with report of 3 days of headache, intermittent chest discomfort persistent fever despite multiple antipyretics. Has had decreased food consumption. Patient denies any rashes or lesions. Denies current chest pain at this time. Denies any worsening shortness of breath. Did have a tick bite several weeks ago per patient. Denies any calf pain or swelling. Denies any exotic travel or swimming. Initially patient states she had some nausea vomiting and diarrhea this is since resolved on Saturday. History of alcohol approximately 616 ounce beers daily, he denies any prior history of withdrawal and has not had a drink since Saturday per patient. He states he has never had temps as high as has been experiencing, Tmax of 105 yesterday per patient. He does state he was able to go to [employer] to go shopping today. Related Data Home Medications ?Medication ?Instructions ?Recorded ?Confirmed ibuprofen 600 mg tablet 600 mg PO TID PRN pain #270 tabs 05/07/23 11/30/23 acetaminophen 500 mg tablet 1,000 mg PO Q6H PRN 11/30/23 11/30/23 Previous Rx's ?Medication ?Instructions ?Recorded ibuprofen 600 mg tablet 600 mg PO TID PRN pain #270 tabs 05/07/23 Allergies Allergy/AdvReac Type Severity Reaction Status Date / Time No Known Allergies Allergy Verified 11/30/23 21:34 General Stated Complaint: GenMedical COLE: 3 Exam Narrative Exam Narrative: Alert and oriented, appears acutely ill, pupils equal round reactive to light and accommodation, moist mucous membranes, no tympanic involvement, no meningismus, wheezes on exam but no respiratory distress, no abdominal tenderness, no CVA tenderness, no rashes or lesions Course Vital Signs Vital signs: Vital Signs Temperature 38.0 C H 11/30/23 21:27 Pulse 123 H 11/30/23 21:27 Respiratory Rate 18 11/30/23 21:27 Blood Pressure 137/79 11/30/23 21:27 Pulse Oximetry 98 11/30/23 21:27 Temperature 38.0 C H 11/30/23 21:27 Temperature Source Temporal Artery Scan 11/30/23 21:27 Pulse 93 H 11/30/23 21:39 Pulse 122 H 11/30/23 21:50 Respiratory Rate 24 11/30/23 21:50 Respiratory Effort Normal 11/30/23 21:33 Blood Pressure 148/74 H 11/30/23 21:39 Blood Pressure Mean 96 11/30/23 21:39 Pulse Oximetry 96 11/30/23 21:50 Pain Level 9 11/30/23 21:27 Lab/Test Results Lab/Test Results: 11/30/23 21:54 Blood Blood Culture - Pending 11/30/23 21:47 Blood Blood Culture - Pending Laboratory Tests Range/Units 11/30/23 21:47 WBC (4.4-10.8) 10^3/uL 4.46 RBC (4.36-5.78) 10^6/uL 4.32 L Hgb (13.5-17.5) g/dL 14.0 Hct (40.0-50.0) % 40.7 MCV (80-95) fL 94 MCH (27.0-33.0) pg 32.4 MCHC (32.0-36.0) % 34.4 RDW (11.8-14.1) % 11.9 Plt Count (130-400) 10^3/uL 105 L MPV (8.0-11.0) fL 10.7 Immature Gran % % 0.4 Neutrophils % % 82.4 Lymphocytes % % 9.4 Monocytes % % 6.7 Eosinophils % % 0.2 Basophils % % 0.9 Nucleated RBC % (0.0-0.3) % 0.0 Absolute Neutrophils (1.2-6.7) 10^3/uL 3.67 Absolute Lymphocytes (1.2-3.4) 10^3/uL 0.42 L Absolute Monocytes (0.1-0.8) 10^3/uL 0.30 Absolute Eosinophils (0.0-0.7) 10^3/uL 0.01 Absolute Basophils (0.0-0.2) 10^3/uL 0.04 VBG Lactate (0.6-1.4) mmol/L 1.5 H Sodium (136-145) mmol/L 135 L Potassium (3.5-5.1) mmol/L 3.5 Chloride (98-107) mmol/L 97 L Carbon Dioxide (21.0-32.0) mmol/L 25.7 Anion Gap (3-11) mmol/L 12.3 H BUN (7-18) mg/dL 18 Creatinine (0.70-1.30) mg/dL 1.0 Est GFR (CKD-EPI 2020) (mL/min/1.73m2) 100.03 Glucose (74-106) mg/dL 125 H Calcium (8.5-10.1) mg/dL 9.2 Magnesium (1.8-2.4) mg/dL 1.4 L Total Bilirubin (0.2-1.0) mg/dL 0.66 AST (15-37) U/L 120 H ALT (16-63) U/L 97 H Alkaline Phosphatase (46-116) U/L 130 H Troponin I (< or =60) ng/L 72 H* C-Reactive Protein (<or=0.5) mg/dL 12.83 H Total Protein (6.4-8.2) g/dL 8.2 Albumin (3.4-5.0) g/dL 3.8 Procalcitonin ng/mL 0.8 Medical Decision Making 38-year-old male presents acutely ill fever and feeling generally unwell. Chest discomfort myalgias. Denies any known sick contacts. EKG does not show evidence of acute abnormality, no leukocytosis, mild thrombocytopenia, mild elevation in LFTs, AST and ALT acutely elevated at 120 and 97, mag of 1.4, supplemented with 2 g of mag, CRP of 12, initial troponin is 72, again EKG without evidence of ischemia and no active chest pain, low suspicion clinically for PE anion gap of 12, VBG of 1.5, sodium of 135. At this time patient will need admission to the hospital, pending repeat troponin. There are numerous differentials initially my thought was this is viral as there is no leukocytosis or shift with the lymphopenia. Pending flu, COVID, RSV, pending repeat troponin, urinalysis. Ceftriaxone 2 g initiated heated empirically. 1 L of LR. Doxycycline 100 mg ordered empirically for tickborne illness and ceftriaxone for more broad-spectrum coverage. Secondary to patient's elevated troponin in the presence of persistent fevers, elevated LFTs, thrombocytopenia patient warrants admission to the hospital for observation, pending repeat troponin at this time. No current chest discomfort. Patient feeling symptomatically improved at this time without chest pain. Pending repeat troponin and urinalysis. Patient will need CIWA, however denies any alcohol use since Saturday and not exhibiting signs or symptoms of withdrawal at this time. Quality:[facility] Health Related Social Needs: No Data to Display Critical Care Time Critical Care Time Attestation: Approximately 45 minutes of critical critical care time secondary to meeting sepsis criteria with elevated troponin concerning for myocarditis. Requiring aspirin administration, telemetry monitoring, admission to the hospital, IV fluids, IV antibiotic resuscitation, diagnostic imaging interpretation, diagnostic lab review and supplementation, and ultimately admission to the hospital. 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 Groin strain Varicocele Hydronephrosis, right Post concussion syndrome Alcohol intoxication blunt head trauma Family History Father Alcohol abuse Mother Anxiety Depression Maternal Grandfather Heart disease Hyperlipidemia Hypertension Paternal Grandfather Heart disease Hyperlipidemia Hypertension Alcohol abuse Maternal Grandmother Diabetes Paternal Uncle Cancer Paternal Grandmother Diabetes Brother Anxiety Drug abuse Social History Smoking/Tobacco Use Status: Current every day Tobacco Type: cigarettes Tobacco: How many years used: 15 Quit status: considering quitting Smoking risk assessment performed?: Yes Alcohol Intake: current Alcohol Intake frequency: 3 or more drinks per day Alcohol type: beer Drug use: Never Substance use type: does not use Details: HASN'T DRANK IN 6 DAYS Adopted: No Caregiver/Support person: No Household members: spouse and children Housing: house Number of Children: 1 Communication Needs: None Education Level: high school Do you need help understanding health information?: Rarely 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 Pets and animals: Yes Pets and animals: dog(s) Sexually active: Yes Do you think of yourself as: straight/heterosexual Current gender identity: male What is your relationship status?: How often do you talk on the phone with friends or family?: three or more times per week How often do you get together with friends or relatives?: twice per week Do you belong to any clubs or organized social groups?: no Panel score (0-1 are the most socially isolated patients): 2 What type of physical activity do you participate in: walking and other Details: hiking Duration: 45-60 minutes/day Frequency: daily Alee/Nondenominational: None Special alee needs: No Seatbelt use: always Helmet use: Yes 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 Do you feel safe at home: Yes Do you feel safe in your relationship?: Yes PAWSS Have you Been Recently Intoxicated or Drunk Within the Last 30 days?: Yes Have you Ever Experienced Previous Episodes of Alcohol Withdrawal?: No Have you ever Experienced Withdrawal Seizures?: No Have you ever Experienced Delirium Tremens(DT)s?: No Have you ever undergone Alcohol Rehabilitation Treatment (i.e, inpt ot outpatient treatment programs)?: No Have you ever Experienced Blackouts?: Yes Have you ever Combined Alcohol with other Downers within the last 90 days?: No Have you ever Combined Alcohol with any other Substance of Abuse during the last 90 days?: No Positive Blood Alcohol level on Presentation? [PCS.BAL]: No Evidence of Increased Autonomic Activity (i.e. HR>120, tremor, sweating, ag itation, nausea)?: No Result: 2
[2023-11-30 23:18] LABS: COVID-19 PCR Negative (Negative); Influenza A PCR Negative (Negative); Influenza B PCR Negative (Negative); RSV PCR Negative (Negative)
[2023-11-30] MEDS: cefTRIAXone 2 GM/50 ML BAG IVPB (23:18)
[2023-11-30 23:21] LABS: Source Nasopharynx
[2023-11-30] MEDS: MAGNESIUM SULFATE 2 GM/50 ML BAG IVINF (23:21)
--- NOTE | 2023-11-30 23:34 | DI.VRAD_ITS ---
PROCEDURE INFORMATION: Exam: XR Chest Exam date and time: 11/30/2023 10:17 PM Age: 38 years old Clinical indication: Other: Fever TECHNIQUE: Imaging protocol: Radiologic exam of the chest. Views: 2 views. COMPARISON: CR XR CHEST 2V PA LATERAL 05/01/2023 7:35 PM FINDINGS: Lungs: No focal consolidation. Pleural spaces: No pneumothorax. Heart/Mediastinum: Cardiomediastinal contours are within normal limits. Hilar structures are unchanged. Bones/joints: Bony structures are age-appropriate. IMPRESSION: 1. No focal consolidation identified. Other findings/details as above. Dictated and Authenticated by: Alissa Arnold MD. Ordering:MOON Epperson MD
[2023-11-30] MEDS: DOXYCYCLINE 100 MG in Normal Saline 100 ML IVPB (23:38)
[2023-11-30] MEDS: Albuterol 2.5 MG/3 ML INH SOLN VIAL UPD (23:40)
[2023-12-01] VITALS (94 sets, daily range): BP systolic 90–129; BP diastolic 63–80; PULSE 70–118; RESP 2–35; TEMP 36.3–40; O2SAT 90–105
[2023-12-01] LABS: Creatine Kinase 93 U/L (39-308)
[2023-12-01 00:04] LABS: Troponin I 72 ng/L (< or =60)
[2023-12-01 00:05] LABS: ESR 21 mm/hr (0-15)
--- NOTE | 2023-12-01 00:59 | W.PM.HP.N ---
Date of service: 12/01/23 Time of Service: 00:59 Assessment and Plan Assessment and plan (1) Elevated troponin I level: Status: Acute Assessment and plan: Repeat troponin remained at 72. At this point given the high fever and high suspicion for a tickborne illness there is some suspicion of a Lyme carditis given his history of intermittent chest pain and mild bump in the troponins. His EKG is reassuring. Will check 1 more troponin in the a.m. (2) Sepsis: Status: Acute Assessment and plan: He meets criteria for sepsis given his high fever and tachycardia. Blood cultures are pending. His procalcitonin is mildly elevated at 0.8. He is received ceftriaxone and doxycycline. Will continue on doxycycline 100 mg IV twice daily. (3) Elevated LFTs: Status: Acute (4) Thrombocytopenia: Status: Chronic Assessment and plan: Mildly elevated transaminases consistent with his regular daily alcohol use. Could also be related to his tickborne illness. Will get another comprehensive metabolic panel in the a.m. (5) History of alcohol use: Status: Acute Assessment and plan: Significant regular daily alcohol use. He is at moderate risk for some signs and symptoms of alcohol withdrawal. Will place him on CIWA scoring system with lorazepam intervention if needed. (6) Hypomagnesemia: Status: Acute Assessment and plan: Magnesium low at 1.4. Will give a 2 g magnesium bolus and recheck level in the a.m. History of Present Illness History of Present Illness Chief Complaint: High fever/nausea vomiting diarrhea. 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 In the emergency room his temp was 104. He was complaining of nausea vomiting and diarrhea since 11/25. He normally drinks 616 ounce beers per day but did not feel like drinking when he came home on Saturday and has not had a drink since that time. He has had some intermittent headaches and some off-and-on chest pain but none currently. He describes finding an embedded tick in his left upper thigh about 2 weeks ago. He did not feel it was engorged. No one else is sick at home. In the emergency room his troponin was mildly elevated at 72 lactate 1.5 magnesium low at 1.4 CRP elevated at 12.83. He had a mild bump in his transaminases. He is admitted for observation and workup for tick borne illness. Review of Systems Narrative: Intermittent headache and chest pain as described in HPI. He has had nausea vomiting and diarrhea since 11/26/2023. He has not had any tick based illnesses in the past. 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 Groin strain Varicocele Hydronephrosis, right Post concussion syndrome Alcohol intoxication blunt head trauma Family History Father Alcohol abuse Mother Anxiety Depression Maternal Grandfather Heart disease Hyperlipidemia Hypertension Paternal Grandfather Heart disease Hyperlipidemia Hypertension Alcohol abuse Maternal Grandmother Diabetes Paternal Uncle Cancer Paternal Grandmother Diabetes Brother Anxiety Drug abuse Social History Smoking/Tobacco Use Status: Current every day Tobacco Type: cigarettes Tobacco: How many years used: 15 Quit status: considering quitting Smoking risk assessment performed?: Yes Alcohol Intake: current Alcohol Intake frequency: 3 or more drinks per day Alcohol type: beer Drug use: Never Substance use type: does not use Details: HASN'T DRANK IN 6 DAYS Adopted: No Caregiver/Support person: No Household members: spouse and children Housing: house Number of Children: 1 Communication Needs: None Education Level: high school Do you need help understanding health information?: Rarely 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 Pets and animals: Yes Pets and animals: dog(s) Sexually active: Yes Do you think of yourself as: straight/heterosexual Current gender identity: male What is your relationship status?: How often do you talk on the phone with friends or family?: three or more times per week How often do you get together with friends or relatives?: twice per week Do you belong to any clubs or organized social groups?: no Panel score (0-1 are the most socially isolated patients): 2 What type of physical activity do you participate in: walking and other Details: hiking Duration: 45-60 minutes/day Frequency: daily Alee/Oriental Orthodox: None Special alee needs: No Seatbelt use: always Helmet use: Yes Drive intox or ride w/intox 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 He was alert and cooperative with exam. He did not appear to have a tremor. His heart was racing but regular, pulse of 99. No murmur was appreciated. His lungs sounded slightly rhonchorous but no significant wheezing. Abdomen was overall soft and nontender. The exam of the left upper groin showed no evidence of any rash or circular lesion there is no evidence of a prior tick bite the remainder of his skin exam appears quite benign the lower extremity showed no edema neurologically no focal deficits. Results Imaging EKG: report reviewed Labs 11/30/23 21:47 11/30/23 21:47 Labs: Laboratory Results - last 24 hr 11/30/23 11/30/23 11/30/23 21:40 21:47 23:41 WBC 4.46 RBC 4.32 L Hgb 14.0 Hct 40.7 MCV 94 MCH 32.4 MCHC 34.4 RDW 11.9 Plt Count 105 L MPV 10.7 Immature Gran % 0.4 Neutrophils % 82.4 Lymphocytes % 9.4 Monocytes % 6.7 Eosinophils % 0.2 Basophils % 0.9 Nucleated RBC % 0.0 Absolute Neutrophils 3.67 Absolute Lymphocytes 0.42 L Absolute Monocytes 0.30 Absolute Eosinophils 0.01 Absolute Basophils 0.04 ESR 21 H VBG Lactate 1.5 H Sodium 135 L Potassium 3.5 Chloride 97 L Carbon Dioxide 25.7 Anion Gap 12.3 H BUN 18 Creatinine 1.0 Est GFR (CKD-EPI 2020) 100.03 Glucose 125 H Calcium 9.2 Magnesium 1.4 L Total Bilirubin 0.66 AST 120 H ALT 97 H Alkaline Phosphatase 130 H Creatine Kinase 93 Troponin I 72 H* 72 H* C-Reactive Protein 12.83 H Total Protein 8.2 Albumin 3.8 Procalcitonin 0.8 COVID-19 Source Nasopharynx SARS-CoV-2 (PCR) Negative Influenza Type A (PCR) Negative Influenza Type B (PCR) Negative RSV (PCR) Negative 12/01/23 22:56 WBC RBC Hgb Hct MCV MCH MCHC RDW Plt Count MPV Immature Gran % Neutrophils % Lymphocytes % Monocytes % Eosinophils % Basophils % Nucleated RBC % Absolute Neutrophils Absolute Lymphocytes Absolute Monocytes Absolute Eosinophils Absolute Basophils ESR VBG Lactate Sodium Potassium Chloride Carbon Dioxide Anion Gap BUN Creatinine Est GFR (CKD-EPI 2020) Glucose Calcium Magnesium Total Bilirubin AST ALT Alkaline Phosphatase Creatine Kinase Troponin I Cancelled C-Reactive Protein Total Protein Albumin Procalcitonin COVID-19 Source SARS-CoV-2 (PCR) Influenza Type A (PCR) Influenza Type B (PCR) RSV (PCR) Last Vital Signs Temp 38.2 C H 11/30/23 23:25 Pulse 120 H 11/30/23 23:40 Resp 22 11/30/23 23:40 BP 122/71 11/30/23 23:25 Pulse Ox 96 11/30/23 23:40 PAWSS Have you Been Recently Intoxicated or Drunk Within the Last 30 days?: Yes Have you Ever Experienced Previous Episodes of Alcohol Withdrawal?: No Have you ever Experienced Withdrawal Seizures?: No Have you ever Experienced Delirium Tremens(DT)s?: No Have you ever undergone Alcohol Rehabilitation Treatment (i.e, inpt ot outpatient treatment programs)?: No Have you ever Experienced Blackouts?: Yes Have you ever Combined Alcohol with other Downers within the last 90 days?: No Have you ever Combined Alcohol with any other Substance of Abuse during the last 90 days?: No Positive Blood Alcohol level on Presentation? [PCS.BAL]: No Evidence of Increased Autonomic Activity (i.e. HR>120, tremor, sweating, agitation, nausea)?: No Result: 2 Time Spent Time spent with Patient: 40-54 minutes Time was spent: preparing to see the patient(eg.review tests), obtaining and/or reviewing separately otained hiistory, ordering medications,tests, procedures, referring, communicating with other health body care manager, indepentently interpreting results and counseling the patient
--- NOTE | 2023-12-01 01:01 | W.PCEDHO ---
Registration Status: Primary Language: Preferred Language: ED Information & Data Chief Complaint [facility]Medical 11/30/23 23:11 Triage Note 3 DAYS POUNDING HEAD ACHE, 11/30/23 21:27 FRONTAL/OCCIPITAL AREA, FEELING SHARP PAIN IN EAR DRUMS INTERMITTENLY. INTERMITTENED STERNAL CHEST PAIN. HAS HAD FEEVER, ON SATURDAY 104.8, TAKING APAP Q64. WHEN HEAD ACHE GETS BAD /HIGH FEVER HE FEELS DIZZY AND LIKE HE WAS GOING TO PASS OUT. PT REPORTS HALLUCINATIONS WHEN FEVER AT HIGHEST. PT ALSO TAKING 800MG ADVIL Q6HR. DECREASED APPETITE AND DRINKING LOTS OF WATER. FEELS VERY COLD, SAHKING. Medical / Surgical History (Last Reviewed 10/29/22 @ 06:26 by Allan Garrison) Post concussion syndrome Alcohol intoxication Most Recent Vital Signs Temperature 38.2 C H 11/30/23 23:25 Temperature Source Temporal Artery Scan 11/30/23 21:27 Pulse 120 H 11/30/23 23:40 Pulse 115 H 11/30/23 23:20 Respiratory Rate 22 11/30/23 23:40 Respiratory Effort Normal 11/30/23 21:33 Blood Pressure 122/71 11/30/23 23:25 Blood Pressure Mean 87 11/30/23 23:15 Pulse Oximetry 96 11/30/23 23:40 Oxygen Delivery Method Room Air 11/30/23 23:40 Oxygen Flow Rate 0 11/30/23 23:40 Pain Level 6 11/30/23 23:25 Allergies No Known Allergies Allergy (Verified 11/30/23 21:34) Active Medications Generic Name Dose Route Start Last Admin Trade Name Freq PRN Reason Stop Dose Admin Magnesium Sulfate 2 gm in 50 mls @ 25 mls/hr 11/30/23 22:54 11/30/23 23:21 IVINF 12/01/23 00:53 25 mls/hr NOW ONE Administration IV IV Catheter Type [Left Saline Lock Antecubital] IV Catheter Type [Right Peripheral IV Antecubital] IV Catheter Gauge [Left 20 Antecubital] IV Catheter Gauge [Right 18 Antecubital] Diet Orders Category Date Time Status Regular/Normal [DIET] Nutrition 12/01/23 Breakfast Active Diagnostics 12/01/23 12/01/23 12/01/23 Range/Units 22:56 05:35 02:54 WBC Pending (4.4-10.8) 10^3/uL RBC Pending (4.36-5.78) 10^6/uL Hgb Pending (13.5-17.5) g/dL Hct Pending (40.0-50.0) % MCV Pending (80-95) fL MCH Pending (27.0-33.0) pg MCHC Pending (32.0-36.0) % RDW Pending (11.8-14.1) % Plt Count Pending (130-400) 10^3/uL MPV Pending (8.0-11.0) fL Immature Gran % Pending % Neutrophils % Pending % Lymphocytes % Pending % Monocytes % Pending % Eosinophils % Pending % Basophils % Pending % Nucleated RBC % (0.0-0.3) % Absolute Neutrophils Pending (1.2-6.7) 10^3/uL Absolute Lymphocytes Pending (1.2-3.4) 10^3/uL Absolute Monocytes Pending (0.1-0.8) 10^3/uL Absolute Eosinophils Pending (0.0-0.7) 10^3/uL Absolute Basophils Pending (0.0-0.2) 10^3/uL ESR (0-15) mm/hr VBG Lactate (0.6-1.4) mmol/L Sodium Pending (136-145) mmol/L Potassium Pending (3.5-5.1) mmol/L Chloride Pending (98-107) mmol/L Carbon Dioxide Pending (21.0-32.0) mmol/L Anion Gap Pending (3-11) mmol/L BUN Pending (7-18) mg/dL Creatinine Pending (0.70-1.30) mg/dL Est GFR (CKD-EPI 2020) Pending (mL/min/1.73m2) Glucose Pending (74-106) mg/dL Calcium Pending (8.5-10.1) mg/dL Magnesium Pending (1.8-2.4) mg/dL Total Bilirubin Pending (0.2-1.0) mg/dL AST Pending (15-37) U/L ALT Pending (16-63) U/L Alkaline Phosphatase Pending (46-116) U/L Creatine Kinase (39-308) U/L Troponin I Cancelled Pending Pending (< or =60) ng/L C-Reactive Protein (<or=0.5) mg/dL Total Protein Pending (6.4-8.2) g/dL Albumin Pending (3.4-5.0) g/dL Procalcitonin ng/mL Urine Color Urine Clarity Urine pH Ur Specific Emerson Urine Protein Urine Ketones Urine Blood Urine Nitrite Urine Bilirubin Urine Urobilinogen Ur Leukocyte Esterase Urine Glucose Urine Opiates Screen Ur Barbiturates Screen Ur Tricyclics Screen Ur Amphetamines Screen U Benzodiazepines Scrn Urine Cocaine Screen Ur THC Screen B. divergens/MO-1 PCR Babesia duncani (PCR) Babesia microti DNA PCR Lyme Disease Antibody COVID-19 Source SARS-CoV-2 (PCR) (Negative) E.chaffeensis DNA (PCR) E.ewingii/canis DNA PCR E.muris eauclairensis (PCR) Influenza Type A (PCR) (Negative) Influenza Type B (PCR) (Negative) RSV (PCR) (Negative) A. phagocytophilum (PCR) Blood B. miyamotoi (PCR) 11/30/23 11/30/23 11/30/23 Range/Units 23:42 23:41 21:47 WBC 4.46 (4.4-10.8) 10^3/uL RBC 4.32 L (4.36-5.78) 10^6/uL Hgb 14.0 (13.5-17.5) g/dL Hct 40.7 (40.0-50.0) % MCV 94 (80-95) fL MCH 32.4 (27.0-33.0) pg MCHC 34.4 (32.0-36.0) % RDW 11.9 (11.8-14.1) % Plt Count 105 L (130-400) 10^3/uL MPV 10.7 (8.0-11.0) fL Immature Gran % 0.4 % Neutrophils % 82.4 % Lymphocytes % 9.4 % Monocytes % 6.7 % Eosinophils % 0.2 % Basophils % 0.9 % Nucleated RBC % 0.0 (0.0-0.3) % Absolute Neutrophils 3.67 (1.2-6.7) 10^3/uL Absolute Lymphocytes 0.42 L (1.2-3.4) 10^3/uL Absolute Monocytes 0.30 (0.1-0.8) 10^3/uL Absolute Eosinophils 0.01 (0.0-0.7) 10^3/uL Absolute Basophils 0.04 (0.0-0.2) 10^3/uL ESR 21 H (0-15) mm/hr VBG Lactate 1.5 H (0.6-1.4) mmol/L Sodium 135 L (136-145) mmol/L Potassium 3.5 (3.5-5.1) mmol/L Chloride 97 L (98-107) mmol/L Carbon Dioxide 25.7 (21.0-32.0) mmol/L Anion Gap 12.3 H (3-11) mmol/L BUN 18 (7-18) mg/dL Creatinine 1.0 (0.70-1.30) mg/dL Est GFR (CKD-EPI 2020) 100.03 (mL/min/1.73m2) Glucose 125 H (74-106) mg/dL Calcium 9.2 (8.5-10.1) mg/dL Magnesium 1.4 L (1.8-2.4) mg/dL Total Bilirubin 0.66 (0.2-1.0) mg/dL AST 120 H (15-37) U/L ALT 97 H (16-63) U/L Alkaline Phosphatase 130 H (46-116) U/L Creatine Kinase 93 (39-308) U/L Troponin I 72 H* 72 H* (< or =60) ng/L C-Reactive Protein 12.83 H (<or=0.5) mg/dL Total Protein 8.2 (6.4-8.2) g/dL Albumin 3.8 (3.4-5.0) g/dL Procalcitonin 0.8 ng/mL Urine Color Pending Urine Clarity Pending Urine pH Pending Ur Specific Emerson Pending Urine Protein Pending Urine Ketones Pending Urine Blood Pending Urine Nitrite Pending Urine Bilirubin Pending Urine Urobilinogen Pending Ur Leukocyte Esterase Pending Urine Glucose Pending Urine Opiates Screen Pending Ur Barbiturates Screen Pending Ur Tricyclics Screen Pending Ur Amphetamines Screen Pending U Benzodiazepines Scrn Pending Urine Cocaine Screen Pending Ur THC Screen Pending B. divergens/MO-1 PCR Pending Babesia duncani (PCR) Pending Babesia microti DNA PCR Pending Lyme Disease Antibody Pending COVID-19 Source SARS-CoV-2 (PCR) (Negative) E.chaffeensis DNA (PCR) Pending E.ewingii/canis DNA PCR Pending E.muris eauclairensis (PCR) Pending Influenza Type A (PCR) (Negative) Influenza Type B (PCR) (Negative) RSV (PCR) (Negative) A. phagocytophilum (PCR) Pending Blood B. miyamotoi (PCR) Pending 11/30/23 Range/Units 21:40 WBC (4.4-10.8) 10^3/uL RBC (4.36-5.78) 10^6/uL Hgb (13.5-17.5) g/dL Hct (40.0-50.0) % MCV (80-95) fL MCH (27.0-33.0) pg MCHC (32.0-36.0) % RDW (11.8-14.1) % Plt Count (130-400) 10^3/uL MPV (8.0-11.0) fL Immature Gran % % Neutrophils % % Lymphocytes % % Monocytes % % Eosinophils % % Basophils % % Nucleated RBC % (0.0-0.3) % Absolute Neutrophils (1.2-6.7) 10^3/uL Absolute Lymphocytes (1.2-3.4) 10^3/uL Absolute Monocytes (0.1-0.8) 10^3/uL Absolute Eosinophils (0.0-0.7) 10^3/uL Absolute Basophils (0.0-0.2) 10^3/uL ESR (0-15) mm/hr VBG Lactate (0.6-1.4) mmol/L Sodium (136-145) mmol/L Potassium (3.5-5.1) mmol/L Chloride (98-107) mmol/L Carbon Dioxide (21.0-32.0) mmol/L Anion Gap (3-11) mmol/L BUN (7-18) mg/dL Creatinine (0.70-1.30) mg/dL Est GFR (CKD-EPI 2020) (mL/min/1.73m2) Glucose (74-106) mg/dL Calcium (8.5-10.1) mg/dL Magnesium (1.8-2.4) mg/dL Total Bilirubin (0.2-1.0) mg/dL AST (15-37) U/L ALT (16-63) U/L Alkaline Phosphatase (46-116) U/L Creatine Kinase (39-308) U/L Troponin I (< or =60) ng/L C-Reactive Protein (<or=0.5) mg/dL Total Protein (6.4-8.2) g/dL Albumin (3.4-5.0) g/dL Procalcitonin ng/mL Urine Color Urine Clarity Urine pH Ur Specific Emerson Urine Protein Urine Ketones Urine Blood Urine Nitrite Urine Bilirubin Urine Urobilinogen Ur Leukocyte Esterase Urine Glucose Urine Opiates Screen Ur Barbiturates Screen Ur Tricyclics Screen Ur Amphetamines Screen U Benzodiazepines Scrn Urine Cocaine Screen Ur THC Screen B. divergens/MO-1 PCR Babesia duncani (PCR) Babesia microti DNA PCR Lyme Disease Antibody COVID-19 Source Nasopharynx SARS-CoV-2 (PCR) Negative (Negative) E.chaffeensis DNA (PCR) E.ewingii/canis DNA PCR E.muris eauclairensis (PCR) Influenza Type A (PCR) Negative (Negative) Influenza Type B (PCR) Negative (Negative) RSV (PCR) Negative (Negative) A. phagocytophilum (PCR) Blood B. miyamotoi (PCR) 11/30/23 21:54 Blood Culture - Pending Blood 11/30/23 21:47 Blood Culture - Pending Blood Intake and Output - 24 Hour Total 11/30/23 21:24 thru 12/01/23 00:27 Intake Total 1150 Balance 1150 Weight 81.647 kg Intake: IV 1150 Falls Risk Assessment History of Falls No History 11/30/23 23:25 Contributing Factors No Factors 11/30/23 23:25 Ambulatory Aids Independent 11/30/23 23:25 Tubes/Lines None 11/30/23 23:25 Gait Evaluation No gait disturbance 11/30/23 23:25 Fall Total Score 0 11/30/23 23:25 Level of Risk Standard/Low Risk 11/30/23 23:25 v v v v v v v v v Sending and/or Receiving Nurses: Please use comment section below to note any information pertinent to the patient hand-off not included above. Information / Comments: Report received from: [id number] nicolasa
[2023-12-01 01:18] LABS: Bilirubin Negative (Negative); Blood Negative (Negative); Clarity Sl Cloudy (Clear); Glucose Negative (Negative); Ketones Negative (Negative); Leukocyte Esterase Negative (Negative); Nitrite Negative (Negative); Specific Gravity 1.015 (1.005-1.025); Urobilinogen 0.2 mg/dL (Up to 0.2)
[2023-12-01 01:25] LABS: *AMPHETAMINES SCREEN URINE Negative (Negative); *BARBITURATES SCREEN URINE Negative (Negative); *BENZODIAZEPINES SCREEN URINE Negative (Negative); Cannabinoids THC Negative (Negative); Cocaine Screen,Urine Negative (Negative); METHADONE URINE SCREEN Negative (Negative); OPIATES URINE SCREEN Negative (Negative)
[2023-12-01 01:26] LABS: Bacteria Negative HPF (Negative); C & S Indicated? No; Casts Negative LPF (Negative); Crystals Negative HPF (Negative); Epithelial Cells Rare HPF (Negative); Mucus Trace (Negative); RBC Negative HPF (0-2); Tricyclic Antidepressants Negative (Negative); WBC Negative HPF (0-5)
[2023-12-01] MEDS: MAGNESIUM SULFATE 2 GM/50 ML BAG IVINF (02:15)
[2023-12-01 03:49] LABS: Troponin I 56 ng/L (< or =60)
[2023-12-01] MEDS: Acetaminophen 500 MG TAB 1000 MG PO ×2 (04:15→10:53)
[2023-12-01 06:41] LABS: Abs Immature Grans 0.02 10^3/uL (0.0-0.06); Absolute Basophil Count 0.04 10^3/uL (0.0-0.2); Absolute Lymphocyte Count 0.36 10^3/uL (1.2-3.4); Absolute Monocyte Count 0.29 10^3/uL (0.1-0.8); Absolute Neutrophil Count 3.72 10^3/uL (1.2-6.7); Basophils % 0.9 %; HCT 35.9 % (40.0-50.0); HGB 12.5 g/dL (13.5-17.5); Immature Grans % 0.5 %; Lymphocytes % 8.1 %; MCH 32.9 pg (27.0-33.0); MCHC 34.8 % (32.0-36.0); MCV 95 fL (80-95); MPV 10.8 fL (8.0-11.0); Monocytes % 6.5 %; Platelet Count 108 10^3/uL (130-400); RDW 12.1 % (11.8-14.1); WBC 4.43 10^3/uL (4.4-10.8)
[2023-12-01 07:01] LABS: ALT 86 U/L (16-63); AST 87 U/L (15-37); Albumin 3.2 g/dL (3.4-5.0); Alkaline Phosphatase 128 U/L (46-116); BUN 14 mg/dL (7-18); Bilirubin, Total 0.52 mg/dL (0.2-1.0); CREATININE 0.9 mg/dL (0.70-1.30); Calcium 8.8 mg/dL (8.5-10.1); Chloride 100 mmol/L (98-107); Estimated GFR 113.51 (mL/min/1.73m2); Glucose 104 mg/dL (74-106); Magnesium 2.6 mg/dL (1.8-2.4); Potassium 3.2 mmol/L (3.5-5.1); Sodium 136 mmol/L (136-145); Total Protein 6.9 g/dL (6.4-8.2)
[2023-12-01 07:06] LABS: Troponin I 65 ng/L (< or =60)
[2023-12-01] MEDS: Folic Acid 1 MG TAB PO (08:34)
[2023-12-01] MEDS: Thiamine 100 MG TAB PO (08:35)
[2023-12-01] MEDS: Multivitamin TAB 1 TAB PO (08:35)
--- NOTE | 2023-12-01 08:38 | PDOC.CMIN ---
Date of service: 12/01/23 Time of Service: 08:38 Care Management Initial Assmt Initial Assessment Reason for Hospitalization: sepsis Functional Status/Living Situation Patient Presentation: Steve, as Eladio prefers to be called, was lying in bed visiting with his [place] when CM met with him. He was pleasant in manner and agreeable to conversation. Steve was admitted with sepsis. His temperature this morning was 40 degrees C (104 F). His bloodwork and history suggest he may have a tickborne illness and he is currently receiving IV Doxycycline. Steve was able to take a shower today and shared that it made him feel much better. Steve does not currently have advanced directives. He requested, and was given,a blank copy to complete. CM offered assistance as needed. Town of Residence: 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[employer]) Instrumental Activities of Daily Living (ADLs): Independent Medications Medication Management: No Issues/Barriers identified Physical Functioning/Mobility Assistive Device: none Advance Directives Advance Directives: Do you have an Advance Directive: N 06/11/19 11:34 AD On File at [facility]: N 02/11/18 15:13 Date Asked 11/30/23 11/30/23 21:28 AD Date Reviewed COLST On File at [facility] No 11/30/23 21:28 COLST Date Scanned Code Status Resuscitation Status Full Code Insurance Coverage/Financial Issues Insurance: [employer] [facility] Care Team Visit Care Team Role Provider Type Preet Clancy DO Primary Care Provider OSTEOPATHIC DOCTOR YFN Davalos Emergency Provider [employer] William Guzmán MD Admit Provider [facility] STAFF PHYSICIAN Attending Provider Discharge Potential Discharge Needs: PCP F/U Appt Anticipated Barriers to Discharge: None Identified Patient/Family Education Needs: Review discharge instructions, discuss Ask Me Three Transportation: Private vehicle Plan: Anticipate Steve will be discharged home with no new services when medically cleared by provider. He will follow up with his PCP and plan of care and transport with family. CM will folllow and continue to assess for discharge needs. 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 Groin strain Varicocele Hydronephrosis, right Post concussion syndrome Alcohol intoxication blunt head trauma Family History Father Alcohol abuse Mother Anxiety Depression Maternal Grandfather Heart disease Hyperlipidemia Hypertension Paternal Grandfather Heart disease Hyperlipidemia Hypertension Alcohol abuse Maternal Grandmother Diabetes Paternal Uncle Cancer Paternal Grandmother Diabetes Brother Anxiety Drug abuse Social History Smoking/Tobacco Use Status: Current every day Tobacco Type: cigarettes Tobacco: How many years used: 15 Quit status: considering quitting Smoking risk assessment performed?: Yes Alcohol Intake: current Alcohol Intake frequency: 3 or more drinks per day Alcohol type: beer Drug use: Never Substance use type: does not use Details: HASN'T DRANK IN 6 DAYS Adopted: No Caregiver/Support person: No Household members: spouse and children Housing: house Number of Children: 1 Communication Needs: None Education Level: high school Do you need help understanding health information?: Rarely 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 Pets and animals: Yes Pets and animals: dog(s) Sexually active: Yes Do you think of yourself as: straight/heterosexual Current gender identity: male What is your relationship status?: How often do you talk on the phone with friends or family?: three or more times per week How often do you get together with friends or relatives?: twice per week Do you belong to any clubs or organized social groups?: no Panel score (0-1 are the most socially isolated patients): 2 What type of physical activity do you participate in: walking and other Details: hiking Duration: 45-60 minutes/day Frequency: daily Alee/Mosque: None Special alee needs: No Seatbelt use: always Helmet use: Yes Drive intox or ride w/intox boat driver: No Do you feel safe at home: Yes Do you feel safe in your relationship?: Yes SDOH(Care Management) Screening Will the Patient Participate in the Screening?: Yes Do you worry about having a steady place to live?: no Problems where you live: no known problems In the past 12 months, have you had to go without electric, gas, oil or water in your home?: no Have you or anyone in your house had to go without enough food to eat?: no Has lack of transportation kept you from medical appointments or from doing things needed for daily living?: no Has anyone in your support network made you feel unsafe for any reason?: no
--- NOTE | 2023-12-01 09:52 | NUR.NOTE ---
Patient given a fan that patient greatly appreciates.Nursing Note:
--- NOTE | 2023-12-01 09:54 | PGE_ITS ---
Date of Service Date of service: 12/01/23 Time of Service: 09:54 Assessment and Plan Assessment and plan (1) Elevated troponin I level: Status: Acute Assessment and plan: -Repeat troponin remained at 72. -At this point given the high fever and high suspicion for a tickborne illness there is some suspicion of a Lyme carditis given his history of intermittent chest pain and mild bump in the troponins. -His EKG is reassuring. -AM trop 65 (2) Sepsis: Status: Acute Assessment and plan: -He meets criteria for sepsis given his high fever and tachycardia. -Blood cultures are pending. -His procalcitonin is mildly elevated at 0.8. -He is received ceftriaxone and doxycycline. -Will continue on doxycycline 100 mg IV twice daily. (3) Elevated LFTs: Status: Acute (4) Thrombocytopenia: Status: Chronic Assessment and plan: -Mildly elevated transaminases consistent with his regular daily alcohol use. -Could also be related to his tickborne illness. -platelets roughly the same, 105 on admission and 108 AM 11/30 (5) History of alcohol use: Status: Acute Assessment and plan: Significant regular daily alcohol use. He is at moderate risk for some signs and symptoms of alcohol withdrawal. Will place him on CIWA scoring system with lorazepam intervention if needed. (6) Hypomagnesemia: Status: Acute Assessment and plan: -Magnesium low at 1.4. -s/p 2g magnesium in ED -Mg up to 2.6 AM 11/30 Subjective Subjective Interval history since last seen: Patient states that he is feeling a little better though he is actively having a fever. He understands that he likely has anaplasmosis or lyme disease Exam Narrative Exam Narrative: acutely ill appearing gentleman laying in bed in mild distress due to fever, AOx4, heart RRR, lungs CTAB, abdomen soft, non-tender, non-distended Objective Last Vital Signs Temp 99.5 F 12/01/23 08:38 Pulse 110 H 12/01/23 08:38 Resp 28 H 12/01/23 08:38 BP 111/74 12/01/23 08:38 Pulse Ox 98 12/01/23 08:38 Laboratory Results - last 24 hr 11/30/23 11/30/23 11/30/23 21:40 21:47 23:41 WBC 4.46 RBC 4.32 L Hgb 14.0 Hct 40.7 MCV 94 MCH 32.4 MCHC 34.4 RDW 11.9 Plt Count 105 L MPV 10.7 Immature Gran % 0.4 Neutrophils % 82.4 Lymphocytes % 9.4 Monocytes % 6.7 Eosinophils % 0.2 Basophils % 0.9 Nucleated RBC % 0.0 Absolute Neutrophils 3.67 Absolute Lymphocytes 0.42 L Absolute Monocytes 0.30 Absolute Eosinophils 0.01 Absolute Basophils 0.04 ESR 21 H VBG Lactate 1.5 H Sodium 135 L Potassium 3.5 Chloride 97 L Carbon Dioxide 25.7 Anion Gap 12.3 H BUN 18 Creatinine 1.0 Est GFR (CKD-EPI 2020) 100.03 Glucose 125 H Calcium 9.2 Magnesium 1.4 L Total Bilirubin 0.66 AST 120 H ALT 97 H Alkaline Phosphatase 130 H Creatine Kinase 93 Troponin I 72 H* 72 H* C-Reactive Protein 12.83 H Total Protein 8.2 Albumin 3.8 Procalcitonin 0.8 Urine Color Urine Clarity Urine pH Ur Specific Hadley Urine Protein Urine Ketones Urine Blood Urine Nitrite Urine Bilirubin Urine Urobilinogen Ur Leukocyte Esterase Urine RBC Urine WBC Ur Epithelial Cells Urine Crystals Urine Bacteria Urine Casts Urine Mucus Ur Culture Indicated? Urine Glucose Urine Opiates Screen Urine Methadone Screen Ur Barbiturates Screen Ur Tricyclics Screen Ur Amphetamines Screen U Benzodiazepines Scrn Urine Cocaine Screen Ur THC Screen COVID-19 Source Nasopharynx SARS-CoV-2 (PCR) Negative Influenza Type A (PCR) Negative Influenza Type B (PCR) Negative RSV (PCR) Negative 12/01/23 12/01/23 12/01/23 01:00 03:05 06:13 WBC 4.43 RBC 3.80 L Hgb 12.5 L Hct 35.9 L MCV 95 MCH 32.9 MCHC 34.8 RDW 12.1 Plt Count 108 L MPV 10.8 Immature Gran % 0.5 Neutrophils % 84.0 Lymphocytes % 8.1 Monocytes % 6.5 Eosinophils % 0.0 Basophils % 0.9 Nucleated RBC % 0.0 Absolute Neutrophils 3.72 Absolute Lymphocytes 0.36 L Absolute Monocytes 0.29 Absolute Eosinophils 0.00 Absolute Basophils 0.04 ESR VBG Lactate Sodium 136 Potassium 3.2 L Chloride 100 Carbon Dioxide 24.0 Anion Gap 12.0 H BUN 14 Creatinine 0.9 Est GFR (CKD-EPI 2020) 113.51 Glucose 104 Calcium 8.8 Magnesium 2.6 H Total Bilirubin 0.52 AST 87 H ALT 86 H Alkaline Phosphatase 128 H Creatine Kinase Troponin I 56 65 H* C-Reactive Protein Total Protein 6.9 Albumin 3.2 L Procalcitonin Urine Color Dark Yellow Urine Clarity Sl Cloudy Urine pH 6.0 Ur Specific Hadley 1.015 Urine Protein 30 H Urine Ketones Negative Urine Blood Negative Urine Nitrite Negative Urine Bilirubin Negative Urine Urobilinogen 0.2 Ur Leukocyte Esterase Negative Urine RBC Negative Urine WBC Negative Ur Epithelial Cells Rare Urine Crystals Negative Urine Bacteria Negative Urine Casts Negative Urine Mucus Trace Ur Culture Indicated? No Urine Glucose Negative Urine Opiates Screen Negative Urine Methadone Screen Negative Ur Barbiturates Screen Negative Ur Tricyclics Screen Negative Ur Amphetamines Screen Negative U Benzodiazepines Scrn Negative Urine Cocaine Screen Negative Ur THC Screen Negative COVID-19 Source SARS-CoV-2 (PCR) Influenza Type A (PCR) Influenza Type B (PCR) RSV (PCR) 12/01/23 22:56 WBC RBC Hgb Hct MCV MCH MCHC RDW Plt Count MPV Immature Gran % Neutrophils % Lymphocytes % Monocytes % Eosinophils % Basophils % Nucleated RBC % Absolute Neutrophils Absolute Lymphocytes Absolute Monocytes Absolute Eosinophils Absolute Basophils ESR VBG Lactate Sodium Potassium Chloride Carbon Dioxide Anion Gap BUN Creatinine Est GFR (CKD-EPI 2020) Glucose Calcium Magnesium Total Bilirubin AST ALT Alkaline Phosphatase Creatine Kinase Troponin I Cancelled C-Reactive Protein Total Protein Albumin Procalcitonin Urine Color Urine Clarity Urine pH Ur Specific [place] Urine Protein Urine Ketones Urine Blood Urine Nitrite Urine Bilirubin Urine Urobilinogen Ur Leukocyte Esterase Urine RBC Urine WBC Ur Epithelial Cells Urine Crystals Urine Bacteria Urine Casts Urine Mucus Ur Culture Indicated? Urine Glucose Urine Opiates Screen Urine Methadone Screen Ur Barbiturates Screen Ur Tricyclics Screen Ur Amphetamines Screen U Benzodiazepines Scrn Urine Cocaine Screen Ur THC Screen COVID-19 Source SARS-CoV-2 (PCR) Influenza Type A (PCR) Influenza Type B (PCR) RSV (PCR) PAWSS Have you Been Recently Intoxicated or Drunk Within the Last 30 days?: Yes Have you Ever Experienced Previous Episodes of Alcohol Withdrawal?: No Have you ever Experienced Withdrawal Seizures?: No Have you ever Experienced Delirium Tremens(DT)s?: No Have you ever undergone Alcohol Rehabilitation Treatment (i.e, inpt ot outpatient treatment programs)?: No Have you ever Experienced Blackouts?: Yes Have you ever Combined Alcohol with other Downers within the last 90 days?: No Have you ever Combined Alcohol with any other Substance of Abuse during the last 90 days?: No Positive Blood Alcohol level on Presentation? [PCS.BAL]: No Evidence of Increased Autonomic Activity (i.e. HR>120, tremor, sweating, agitation, nausea)?: No Result: 2 Time Spent with Patient Time Spent with Patient: >50 minutes Time was spent: preparing to see the patient(eg.review tests), obtaining and/or reviewing separately otained hiistory, ordering medications,tests, procedures, referring, communicating with other health care team assistant, indepentently interpreting results, counseling the patient and care coordination
[2023-12-01] MEDS: Potassium Chloride 20 MEQ TABCR 40 MEQ PO (10:54)
[2023-12-01] MEDS: Doxycycline Hyclate 100 MG CAP PO (12:47)
[2023-12-01] MEDS: Ibuprofen 600 MG TAB PO (19:38)
[2023-12-02] MEDS: Doxycycline Hyclate 100 MG CAP PO ×2 (00:03→11:55)
[2023-12-02 03:05] VITALS: BP 102/72; PULSE 77; RESP 16; TEMP 35.5; O2SAT 98
[2023-12-02 06:21] LABS: HCT 37.6 % (40.0-50.0); HGB 12.9 g/dL (13.5-17.5); MCHC 34.3 % (32.0-36.0); MCV 96 fL (80-95); MPV 10.7 fL (8.0-11.0); RBC 3.91 10^6/uL (4.36-5.78); RDW 12.2 % (11.8-14.1); RDW-SD 43.2 fL; WBC 4.49 10^3/uL (4.4-10.8)
[2023-12-02 06:44] LABS: Anion Gap 10.2 mmol/L (3-11); BUN 8 mg/dL (7-18); CO2 23.8 mmol/L (21.0-32.0); CREATININE 0.6 mg/dL (0.70-1.30); Chloride 103 mmol/L (98-107); Glucose 113 mg/dL (74-106); Sodium 137 mmol/L (136-145)
[2023-12-02 06:56] LABS: Platelet Count 99 10^3/uL (130-400)
--- NOTE | 2023-12-02 07:23 | NUR.NOTE ---
Access chart to determine EKG's in [facility] and EKG orders in [facility]. Duplicate order cancelled. Nursing Note:
--- NOTE | 2023-12-02 07:27 | W.PC.ACHO ---
Registration Status: Primary Language: Preferred Language: ED Information & Data Chief Complaint GenMedical 11/30/23 23:11 Triage Note 3 DAYS POUNDING HEAD ACHE, 11/30/23 21:27 FRONTAL/OCCIPITAL AREA, FEELING SHARP PAIN IN EAR DRUMS INTERMITTENLY. INTERMITTENED STERNAL CHEST PAIN. HAS HAD FEEVER, ON SATURDAY 104.8, TAKING APAP Q64. WHEN HEAD ACHE GETS BAD /HIGH FEVER HE FEELS DIZZY AND LIKE HE WAS GOING TO PASS OUT. PT REPORTS HALLUCINATIONS WHEN FEVER AT HIGHEST. PT ALSO TAKING 800MG ADVIL Q6HR. DECREASED APPETITE AND DRINKING LOTS OF WATER. FEELS VERY COLD, SAHKING. 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 Groin strain Varicocele Hydronephrosis, right Post concussion syndrome Alcohol intoxication Most Recent Vital Signs Temperature 35.5 C L 12/02/23 03:05 Temperature Source Temporal Artery Scan 12/02/23 03:05 Pulse 77 12/02/23 03:05 Pulse Rhythm Regular 12/02/23 03:05 Pulse 101 H 12/01/23 16:01 Respiratory Rate 16 12/02/23 03:05 Respiratory Effort Normal 12/02/23 03:05 Respiratory Depth Normal 12/01/23 19:40 Respiratory Pattern Normal 12/01/23 19:40 Blood Pressure 102/72 12/02/23 03:05 Blood Pressure Mean 82 12/01/23 16:01 Pulse Oximetry 98 12/02/23 03:05 Oxygen Delivery Method Room Air 12/02/23 03:05 Oxygen Flow Rate 0 12/02/23 03:05 Pain Level 0 12/02/23 03:05 Allergies No Known Allergies Allergy (Verified 11/30/23 21:34) Active Medications Generic Name Dose Route Start Last Admin Trade Name Freq PRN Reason Stop Dose Admin Acetaminophen 1,000 mg 12/01/23 09:01 12/01/23 10:53 Acetaminophen 500 Mg Tab PO 1,000 mg Q6H PRN PRN Administration Doxycycline Hyclate 100 mg 12/01/23 12:00 12/02/23 00:03 Doxycycline Hyclate 100 Mg Cap PO 100 mg Q12H SEAN Administration Folic Acid 1 mg 12/01/23 08:30 12/01/23 08:34 Folic Acid 1 Mg Tab PO 12/07/23 08:31 1 mg QAM SEAN Administration Ibuprofen 600 mg 12/01/23 09:05 12/01/23 19:38 Ibuprofen 600 Mg Tab PO 600 mg TID PRN PRN Administration pain Multivitamins 1 tab 12/01/23 08:30 12/01/23 08:35 Multivitamin Tab PO 12/07/23 08:31 1 tab QAM ESAN Administration Thiamine HCl 100 mg 12/01/23 08:30 12/01/23 08:35 Thiamine 100 Mg Tab PO 12/07/23 08:31 100 mg QAM SEAN Administration IV IV Catheter Type [Left Peripheral IV Antecubital] IV Catheter Type [Right Peripheral IV Antecubital] IV Catheter Gauge [Left 20 Antecubital] IV Catheter Gauge [Right 18 Antecubital] Diagnostics 12/02/23 Range/Units 06:04 WBC 4.49 (4.4-10.8) 10^3/uL RBC 3.91 L (4.36-5.78) 10^6/uL Hgb 12.9 L (13.5-17.5) g/dL Hct 37.6 L (40.0-50.0) % MCV 96 H (80-95) fL MCH 33.0 (27.0-33.0) pg MCHC 34.3 (32.0-36.0) % RDW 12.2 (11.8-14.1) % Plt Count 99 L (130-400) 10^3/uL MPV 10.7 (8.0-11.0) fL Sodium 137 (136-145) mmol/L Potassium 4.0 (3.5-5.1) mmol/L Chloride 103 (98-107) mmol/L Carbon Dioxide 23.8 (21.0-32.0) mmol/L Anion Gap 10.2 (3-11) mmol/L BUN 8 (7-18) mg/dL Creatinine 0.6 L (0.70-1.30) mg/dL Est GFR (CKD-EPI 2020) 128.30 (mL/min/1.73m2) Glucose 113 H (74-106) mg/dL Calcium 9.0 (8.5-10.1) mg/dL 11/30/23 21:54 Blood Culture - Preliminary Blood NO GROWTH 24 HOURS 11/30/23 21:47 Blood Culture - Preliminary Blood NO GROWTH 24 HOURS Intake and Output - 24 Hour Total 11/30/23 21:24 thru 12/02/23 03:05 Intake Total 1890 Output Total 500 Balance 1390 Weight 55.2 kg Intake: IV 1350 Oral 540 Output: Urine 500 Other: Urine Color Yellow Urine Appearance Clear Urine Odor None Comment pt reports he has voided x1 tonight. Voiding Methods Toilet Falls Risk Assessment History of Falls No History 12/01/23 01:25 Contributing Factors No Factors 12/01/23 01:25 Ambulatory Aids Independent 12/01/23 01:25 Tubes/Lines W/no contributing factors 12/01/23 01:25 Gait Evaluation No gait disturbance 12/01/23 01:25 Fall Total Score 10 12/01/23 01:25 Level of Risk Standard/Low Risk 12/01/23 01:25 Problems (Last Updated 12/01/23 @ 01:03 by William Guzmán MD) Hypomagnesemia (Acute) History of alcohol use (Acute) Thrombocytopenia (Chronic) Elevated LFTs (Acute) Sepsis (Acute) Elevated troponin I level (Acute) Notes 12/02/23 07:23 Nursing Notes by Kandice Mcnair Access chart to determine EKG's in [facility] and EKG orders in [facility]. Duplicate order cancelled. Nursing Note: Initialized on 12/02/23 07:23 - END OF NOTE 12/01/23 09:52 Nursing Notes by Jonathan Sanchez Patient given a fan that patient greatly appreciates.Nursing Note: Initialized on 12/01/23 09:52 - END OF NOTE v v v v v v v v v Sending and/or Receiving Nurses: Please use comment section below to note any information pertinent to the patient hand-off not included above. Information / Comments: Report received from: [facility] ICU This note is being back charted due to the acuity of [facility] upon my arrival at 1900 on 12/01/23. [facility] Pt is a 38 year old Male Oriented x4. He has bilateral IV's Presented to [facility] for rule out tick borne illness. a tick panel has been drawn he is stand by assist. we are awaiting tick borne illness blood pannel to result. He is on doxycycline po 100mg BID. Pt ambulated from ICU to [facility] with Staff.
[2023-12-02 08:13] VITALS: BP 96/55; PULSE 88; RESP 18; TEMP 36.4; O2SAT 98
[2023-12-02] MEDS: Folic Acid 1 MG TAB PO (09:04)
[2023-12-02] MEDS: Multivitamin TAB 1 TAB PO (09:04)
[2023-12-02] MEDS: Thiamine 100 MG TAB PO (09:05)
[2023-12-02] MEDS: Acetaminophen 500 MG TAB 1000 MG PO (09:22)
--- NOTE | 2023-12-02 10:20 | PDOC.CMPRO ---
Date of service: 12/02/23 Time of Service: 10:20 Care Management Progress Note Progress Note Text Progress Note Text: Steve was sitting up in bed visiting with his when CM met with him. He reported that he is feeling well and has not had a fever since yesterday. Most of the results from the tick panel are not available yet so a confirmed diagnosis has not been made. Steve continues to receive Vibramycin which should be effective against common tickborne diseases, and is tolerating it well.. Discharge Potential Discharge Needs: PCP F/U Appt Anticipated Barriers to Discharge: Medical Status Patient/Family Education Needs: Review discharge instructions, discuss Ask Me Three Transportation: Private vehicle Plan: Anticipate Steve will be discharged home with no new services. He will follow up with his community providers and plan of care and transport with his . CM will follow and continue to assess for discharge needs. SDOH(Care Management) Screening Will the Patient Participate in the Screening?: Yes Do you worry about having a steady place to live?: no Problems where you live: no known problems In the past 12 months, have you had to go without electric, gas, oil or water in your home?: no Have you or anyone in your house had to go without enough food to eat?: no Has lack of transportation kept you from medical appointments or from doing things needed for daily living?: no Has anyone in your support network made you feel unsafe for any reason?: no
[2023-12-02 10:52] LABS: Lyme Ab w Rflx to Lyme Confirm Negative (Negative)
[2023-12-02] MEDS: Docusate Sodium 100 MG CAP PO (10:52)
[2023-12-02 11:17] LABS: Lab Add On Test DONE
[2023-12-02 11:42] VITALS: BP 104/68; PULSE 75; RESP 17; TEMP 36.5; O2SAT 96
[2023-12-02 12:50] LABS: ALT 108 U/L (16-63); AST 86 U/L (15-37); Alkaline Phosphatase 164 U/L (46-116); Bilirubin, Direct 0.2 mg/dL (0.0-0.2); Total Protein 7.2 g/dL (6.4-8.2)
--- NOTE | 2023-12-02 13:43 | PHA.REVIEW2 ---
Pharmacy Admission Review Admission Clinical Review Admission Pharmacy Review: Hypomagnesemia (Acute) History of alcohol use (Acute) Elevated LFTs (Acute) Sepsis (Acute) Elevated troponin I level (Acute) No Known Allergies Allergy (Verified 11/30/23 21:34) Resuscitation Status Full Code Height 5 ft 11 in Weight 55.2 kg Pharmacy Admission Review Renal Dosing Renal Dosing: BUN 8 mg/dL (7-18) 12/02/23 06:04 Creatinine 0.6 mg/dL (0.70-1.30) L 12/02/23 06:04 Medications needing adjustments: Reviewed (CrCl 132 mL/min) List of meds needing interventions: Current medications are okay Anticoagulation Anticoagulation: Hgb 12.9 g/dL (13.5-17.5) L 12/02/23 06:04 Hct 37.6 % (40.0-50.0) L 12/02/23 06:04 Plt Count 99 10^3/uL (130-400) L 12/02/23 06:04 Creatinine 0.6 mg/dL (0.70-1.30) L 12/02/23 06:04 DVT Prophylaxis: Reviewed (None - thrombocytopenia) Relevant Labs Relevant Labs: ESR 21 mm/hr (0-15) H 11/30/23 21:47 Sodium 137 mmol/L (136-145) 12/02/23 06:04 Potassium 4.0 mmol/L (3.5-5.1) 12/02/23 06:04 Chloride 103 mmol/L (98-107) 12/02/23 06:04 Magnesium 2.6 mg/dL (1.8-2.4) H 12/01/23 06:13 C-Reactive Protein 12.83 mg/dL (<or=0.5) H 11/30/23 21:47 Electrolytes, C-Reactive P, ESR: Reviewed (PLT count decreased from 108 to 99, AST/ALT 86/108 (was 87/86), glucose 113) Cardiac Review Cardiac Review: Troponin I Cancelled 12/01/23 22:56 BP, HR, EF%: Reviewed (BP and HR WNL) QTc Review QTc: Reviewed (413 from 11/30/23) IV to PO Switch IV Medications: Reviewed Home Meds Home Med List reviewed: Reviewed Current Meds Current Medication Order Review: Reviewed Comments: Has order for Lorazepam for alcohol withdrawal, CIWA 0 at 0306. No doses given Pharmacy Antibiotic Review Relevant Labs: WBC 4.49 10^3/uL (4.4-10.8) 12/02/23 06:04 Procalcitonin 0.8 ng/mL 11/30/23 21:47 Temperature 36.5 C Temperature 36.4 C Temperature 35.5 C Microbiology 11/30/23 21:54 Blood Culture - Preliminary Blood NO GROWTH 24 HOURS 11/30/23 21:47 Blood Culture - Preliminary Blood NO GROWTH 24 HOURS Pharmacy Antibiotic Activity: C/S review and Reviewed, no change Comments: Patient is on doxycycline PO day 2 for possible tick bourne illness. Lyme disease negative, rest of tick panel still pending.
[2023-12-02 15:07] VITALS: BP 104/69; PULSE 75; RESP 17; TEMP 36; O2SAT 94
--- NOTE | 2023-12-02 17:18 | W.PM.DS.N ---
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 His symptoms of fevers chills muscle aches headaches along with elevated transaminases and low platelet count are all consistent with anaplasmosis. His fevers have defervesced now has been on doxycycline for 48 hours. Patient is feeling markedly better would like to return home. He still has thrombocytopenia and elevated LFTs. It may be another 48 hours before the results of his tick panel comes back. His Lyme antibody titer was negative. As the patient is alert not encephalopathic and not having any headaches or neck aches and he can be safely discharged with close follow-up with his primary care provider in the next week. Tell him to get repeat labs later this week including CMP and CBC. He was sent home on a 10-day course of doxycycline 100 mg twice a day. (2) Sepsis: Status: Acute (3) Elevated troponin I level: Status: Acute Asessment and Plan: The peak as high as 72 and is returned to normal. EKG showed no acute changes to suggest pericarditis or OH. Echocardiogram was ordered but was not able to be obtained before discharge. Recommend follow-up with his primary care provider and if symptomatic I would proceed with an echocardiogram to see if there is any myocarditis. (4) Elevated LFTs: Status: Acute Asessment and Plan: Patient had transient minimally elevated troponin level (5) Thrombocytopenia: Status: Chronic (6) History of alcohol use: Status: Acute (7) Hypomagnesemia: Status: Acute Discharge Plan Disposition Patient Disposition: Home Condition: Good Discharge Details Reason For Visit: Hamilton baker illness/ R/O [place] Admit Date/Time: 11/30/23 23:51 Admit Provider: William Guzmán Attending Provider: William Guzmán Primary Care Provider: Preet Clancy Hospital Course Hospital Course: See admission H&P for details of his presenting symptoms Lesions blood cultures have shown no growth after 24 hours. Laboratory studies remain remarkable for mild thrombocytopenia with a platelet count of 99,000 mild anemia hemoglobin 12.9 g no leukocytosis with a total white count of 4400. Chemistries remain remarkable for transaminitis with an AST of 86 ALT of 108 alkaline phosphatase 164 within normal total bilirubin of 0.4 and a normal conjugated bilirubin of 0.2. Electrolytes within normal limits. Urine toxicology screen was negative. Serology was negative for Lyme disease antibody however tick panel still pending including studies for Babesia as well as ehrlichiosis and anaplasmosis. Fluvid swab was negative. Hospital course and treatment included acetaminophen and ibuprofen for his fever and initiation of doxycycline 100 mg orally every 12 hours. Patient's fevers defervesced his last fever spike was 40 ?C on the morning of 12/01/2023 at 10:53 AM and has been afebrile throughout the course of the day on 12/02/2023. Patient is feeling markedly better with resolution of his headache some myalgias and would like to return home. I told him that it may be couple more days before we get the results on his tick panel because this is a send out to the [facility] and often takes 3 to 4 days. I told him to check with his primary care provider on Saturday or Saturday to see if they have results. Otherwise he should complete a 10-day course of doxycycline 100 mg twice a day. Prescription for the same was sent to the hospital pharmacy. Home Meds and New Rx's Prescriptions: New doxycycline hyclate 100 mg tablet 100 mg PO BID 10 Days Qty: 20 0RF Continued ibuprofen 600 mg tablet 600 mg PO TID PRN (Reason: pain) Qty: 270 3RF acetaminophen 500 mg tablet 1,000 mg PO Q6H PRN Discharge Instructions Instructions: Rickettsial Infections (DC), Doxycycline Additional Instructions: You have been treated presumptively for a tick borne illness characterized by fever, chills, muscle aches and headaches and occurring w/ low platelet cell counts and elevated liver transaminases. Your Lyme antibody test was negative but the rest of your Tick panel is pending including Anaplasmosis, Ehrlichiosis panels. Please complete your 10 day course of doxycycline and follow up w/ Dr. Clancy next week. Call his office later this week (Sat or for results of the tick panel). Please get follow up labs later this week on or Saturday to follow up your platelet count and liver function tests.b Return to the ED if confusion, severe headaches or fevers reoccur Stand Alone Forms: Nursing Discharge Form Referrals: Preet Clancy DO [Primary Care Provider] - (Please call the office to set up a hospital follow up within 7-10 days Needs follow up and repeat CMP, magnesium level and CBC in the next 5 days) Activity:: Activity as Tolerated Equipment/Supplies:: No Equipment Needed Diet:: Normal Diet Discharge Orders Discharge Orders: Discharge Order (Routine); Ordered 12/02/23 Ordered By: Wing Saleh Other Ambulatory Orders: Complete Blood Count w/Diff (Routine) Timeframe: 4 Days Facility: [facility] - Location: Laboratory Outpatient - [facility] Ordered By: Wing Saleh Liver Panel (Routine) Timeframe: 4 Days Facility: [facility] - Location: Laboratory Outpatient - [facility] Ordered By: Wing Saleh Discharge Data Discharge Date/Time-TO BE ENTERED AT DEPARTURE: 12/02/23 18:11 DS: Summary Time Spent with Patient providing and/or coordinating discharge services: Less than 30 minutes Specific discharge activities: Interview/exam of patient; review of discharge instructions, completion of prescriptions/discharge instructions; discussion w/ nursing and CM; documentation of hospital visit Status at Discharge Functional status at discharge: independent ambulation Overall status at discharge: patient is progressing back to baseline Mental Status: mental status grossly normal Speech and Movement: speech and movement normal Mood: congruent mood Affect: normal affect Quality:SDOH Health Related Social Needs: No Data to Display Exam Narrative Exam Narrative: Young white male sitting up in bed, alert and oriented, denies any fever, chills or headaches at present Lungs: clear Heart: RRR, no murmur or rubs or gallops Abdomen: soft, nontender, no organomegaly Extremities: no petechiae Psych Mental Status: mental status grossly normal Speech and Movement: speech and movement normal Mood: congruent mood Affect: normal affect DS: Data Vitals/I&O Vitals and I&O: Vital Signs Temperature 36.0 C L 12/02/23 15:07 Temperature Source Skin 12/02/23 15:07 Pulse 75 12/02/23 15:07 Pulse Rhythm Regular 12/02/23 17:07 Pulse 101 H 12/01/23 16:01 Respiratory Rate 17 12/02/23 15:07 Respiratory Effort Normal 12/02/23 17:07 Respiratory Depth Normal 12/02/23 17:07 Respiratory Pattern Normal 12/02/23 17:07 Blood Pressure 104/69 12/02/23 15:07 Blood Pressure Mean 82 12/01/23 16:01 Pulse Oximetry 94 12/02/23 15:07 Oxygen Delivery Method Room Air 12/02/23 15:07 Oxygen Flow Rate 0 12/02/23 15:07 Pain Level 0 12/02/23 15:07 Intake & Output 12/01/23 12/02/23 12/02/23 23:59 11:59 23:59 Intake Total 300 / 1790 300 / 1400 1100 / 1400 Output Total 500 / 500 Balance -200 / 1290 300 / 1400 1100 / 1400 Intake: Oral 300 / 540 300 / 1400 1100 / 1400 Output: Urine 500 / 500 Other: Urine Color Yellow Urine Appearance Clear Clear Clear Urine Odor None Comment pT stated that he voided this morning. pT uses bathroom independently, he stated that he has been voiding through out the day. Voiding Methods Toilet Toilet Toilet Data Completed and Pending Labs on day of discharge: Labs from last 24 hours 12/02/23 12/02/23 12/02/23 12:23 11:16 06:04 WBC 4.49 RBC 3.91 L Hgb 12.9 L Hct 37.6 L MCV 96 H MCH 33.0 MCHC 34.3 RDW 12.2 Plt Count 99 L MPV 10.7 Sodium 137 Potassium 4.0 Chloride 103 Carbon Dioxide 23.8 Anion Gap 10.2 BUN 8 Creatinine 0.6 L Est GFR (CKD-EPI 2020) 128.30 Glucose 113 H Calcium 9.0 Total Bilirubin 0.40 Conjugated Bilirubin 0.2 AST 86 H ALT 108 H Alkaline Phosphatase 164 H Total Protein 7.2 Albumin 3.0 L Lyme Disease Antibody Add-On Test Request DONE 11/30/23 21:47 WBC RBC Hgb Hct MCV MCH MCHC RDW Plt Count MPV Sodium Potassium Chloride Carbon Dioxide Anion Gap BUN Creatinine Est GFR (CKD-EPI 2020) Glucose Calcium Total Bilirubin Conjugated Bilirubin AST ALT Alkaline Phosphatase Total Protein Albumin Lyme Disease Antibody Negative Add-On Test Request Preliminary micro results at discharge 11/30/23 21:54 Blood Culture - Preliminary Blood NO GROWTH 24 HOURS 11/30/23 21:47 Blood Culture - Preliminary Blood NO GROWTH 24 HOURS PFSH All Active Problems (Updated 12/02/23 @ 17:21 by Wing Saleh MD) Hypomagnesemia (Acute) History of alcohol use (Acute) Thrombocytopenia (Chronic) Elevated LFTs (Acute) Sepsis (Acute) Elevated troponin I level (Acute) Tobacco use disorder (Chronic) Medical History 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 Groin strain Varicocele Hydronephrosis, right Post concussion syndrome Alcohol intoxication blunt head trauma Family History Father Alcohol abuse Mother Anxiety Depression Maternal Grandfather Heart disease Hyperlipidemia Hypertension Paternal Grandfather Heart disease Hyperlipidemia Hypertension Alcohol abuse Maternal Grandmother Diabetes Paternal Uncle Cancer Paternal Grandmother Diabetes Brother Anxiety Drug abuse Social History Smoking/Tobacco Use Status: Current every day Tobacco Type: cigarettes Tobacco: How many years used: 15 Quit status: considering quitting Smoking risk assessment performed?: Yes Alcohol Intake: current Alcohol Intake frequency: 3 or more drinks per day Alcohol type: beer Drug use: Never Substance use type: does not use Details: HASN'T DRANK IN 6 DAYS Adopted: No Caregiver/Support person: No Household members: spouse and children Housing: house Number of Children: 1 Communication Needs: None Education Level: high school Do you need help understanding health information?: Rarely 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 Pets and animals: Yes Pets and animals: dog(s) Sexually active: Yes Do you think of yourself as: straight/heterosexual Current gender identity: male What is your relationship status?: How often do you talk on the phone with friends or family?: three or more times per week How often do you get together with friends or relatives?: twice per week Do you belong to any clubs or organized social groups?: no Panel score (0-1 are the most socially isolated patients): 2 What type of physical activity do you participate in: walking and other Details: hiking Duration: 45-60 minutes/day Frequency: daily Alee/Confucianism: None Special alee needs: No Seatbelt use: always Helmet use: Yes Drive intox or ride w/intox catering truck driver: No Do you feel safe at home: Yes Do you feel safe in your relationship?: Yes Time Spent with Patient Time Spent with Patient: <45 minutes Time was spent: preparing to see the patient(eg.review tests), ordering medications,tests, procedures, referring, communicating with other health healthcare customer service, indepentently interpreting results, counseling the patient and care coordination
[2023-12-03 20:56] LABS: Anaplasma phagocytophilum Negative (Negative); B. miyamotoi PCR Negative (Negative); Babesia divergens/MO-1 Negative (Negative); Babesia duncani Negative (Negative); Babesia microti Negative (Negative); Ehrlichia chaffeensis Negative (Negative); Ehrlichia ewingii/canis Negative (Negative); Ehrlichia muris eauclairensis Negative (Negative)
== END 2023-12-02 18:11 | disposition home or self-care (01) ==
LOC: ER 12-01 00:02 → ICU 12-01 09:48 → MS 12-01 19:02
PROVIDERS: Family Medicine; Internal Medicine; Admitting Provider Family Medicine; Emergency Provider Physician Assistant; PCP Family Medicine; Visit Provider Family Medicine
DX: A41.9 Sepsis, unspecified organism (principal); A79.82 Anaplasmosis [A. phagocytophilum]; D69.6 Thrombocytopenia, unspecified; E83.42 Hypomagnesemia; R74.8 Abnormal levels of other serum enzymes; R79.89 Other specified abnormal findings of blood chemistry; F10.90 Alcohol use, unspecified, uncomplicated; R51.9 Headache, unspecified; F17.210 Nicotine dependence, cigarettes, uncomplicated; R07.89 Other chest pain
CPT/HCPCS: 00123; 36415; 80048; 80053; 80076; 80307; 82550; 84145; 85027; 85652; 87040; 87637; 87798; 93005; 94640; 96365; 96366; 96367; 96368; 99285; 71046; 81003; 81015; 83605; 83735; 84484; 85025; 86140; 86618; 93010; 99222; 99238; J0131; J0696; J3475; J7613

== ENCOUNTER 2023-12-06 02:33 | Outpatient (CLI) | payer OTHER, SELFPAY ==
[2023-12-06 11:14] LABS: Abs Immature Grans 0.03 10^3/uL (0.0-0.06); Absolute Basophil Count 0.09 10^3/uL (0.0-0.2); Absolute Lymphocyte Count 1.56 10^3/uL (1.2-3.4); Absolute Monocyte Count 0.53 10^3/uL (0.1-0.8); Basophils % 1.5 %; Eosinophils % 3.4 %; HCT 36.6 % (40.0-50.0); HGB 12.4 g/dL (13.5-17.5); Immature Grans % 0.5 %; Lymphocytes % 26.9 %; MCH 32.5 pg (27.0-33.0); MCHC 33.9 % (32.0-36.0); MCV 96 fL (80-95); MPV 9.3 fL (8.0-11.0); Monocytes % 9.1 %; Neutrophils % 58.6 %; Platelet Count 352 10^3/uL (130-400); RBC 3.81 10^6/uL (4.36-5.78); RDW 12.2 % (11.8-14.1); RDW-SD 42.7 fL; WBC 5.81 10^3/uL (4.4-10.8)
[2023-12-06 12:21] LABS: ALT 104 U/L (16-63); AST 51 U/L (15-37); Albumin 3.5 g/dL (3.4-5.0); Alkaline Phosphatase 124 U/L (46-116); Bilirubin, Direct 0.2 mg/dL (0.0-0.2); Bilirubin, Total 0.45 mg/dL (0.2-1.0); Total Protein 7.2 g/dL (6.4-8.2)
== END 2023-12-06 02:34 | disposition home or self-care (01) ==
LOC: LBO 02:33
PROVIDERS: PCP Family Medicine; Referring Provider Internal Medicine; Visit Provider Internal Medicine
DX: D69.6 Thrombocytopenia, unspecified (principal); R79.89 Other specified abnormal findings of blood chemistry
CPT/HCPCS: 36415; 80076; 85025

== ENCOUNTER 2024-05-09 16:37 | Emergency (ER) | payer OTHER, SELFPAY ==
[2024-05-09] VITALS (12 sets, daily range): BP systolic 115–160; BP diastolic 64–79; PULSE 60–96; RESP 17–23; TEMP 36.6; O2SAT 94–99
--- NOTE | 2024-05-09 17:00 | DI.CT_ITS ---
Exam(s) CT ABDOMEN PELVIS W EXAM: CT ABDOMEN PELVIS W CLINICAL HISTORY: R lower back pain radiating into RLQ and R testicl. TECHNIQUE: Imaging Protocol: Axial computed tomography images with coronal and sagittal reformatted images were created and reviewed CONTRAST MATERIAL: Intravenous: Omnipaque-350 75cc Oral: None COMPARISON: MR MR LUMBAR SPINE WO from 05/21/2023 FINDINGS: VISUALIZED LUNG BASES: No nodules nor pleural effusions evident. ABDOMEN: There is no ascites. LIVER: There are no focal hepatic lesions evident. No dilated intrahepatic ducts. GALLBLADDER/BILIARY: No obvious gallbladder pathology. CBD is not dilated. PANCREAS: No evidence of pancreatic mass nor dilatation of the pancreatic duct. SPLEEN: Spleen is not enlarged. No obvious intrasplenic lesions. Splenic and portal veins are paten t. ADRENALS: There are no significant adrenal masses. KIDNEYS:Left kidney unremarkable. There is hydronephrosis of the right kidney and enlargement of the right renal pelvis with obstruction appearing to be at the ureteropelvic junction. There is no radi opaque calculus evident at this level. Ureter below this level is not dilated. There are no radiopa que calculi in the kidney and ureter. No obvious masses and no extrinsic compression seen. There is mild uniform thickening of the urinary bladder wall noted which is either related to cystitis or und er distension.. ABDOMINAL AORTA: Abdominal aorta is not enlarged. LYMPH NODES:There is no retroperitoneal nor paraaortic adenopathy. ABDOMINAL WALL: No evidence of significant anterior abdominal wall nor inguinal hernia. GI: There is no evidence of bowel obstruction, free air, nor abscess. PELVIS: GI: No evidence of appendicitis.No significant sigmoid diverticular disease. LYMPH NODES: There is no intrapelvic nor inguinal adenopathy. REPRODUCTIVE: Prostate size upper normal. Seminal vesicles unremarkable. URINARY BLADDER: As described above there is uniform thickening of the urinary bladder wall either re lated to cystitis, under distension, or a combination of both. There is no perivesicular streaking. There are no radiopaque calculi in the bladder lumen. OSSEOUS: No fractures and no significant osseous lesions. There is advanced chronic disc space narrowing at L5-S1 level. There is no listhesis. IMPRESSION: 1. There is unilateral right-sided hydronephrosis and dilatation of the right renal pelvis. The obst ruction is in the upper ureter at the UPJ level with the ureter below this level exhibiting normal di ameter. There is no radiopaque calculus within the upper right ureter and there is no external compr ession mass evident causing this abnormality. 2. The opposite-left kidney appears unremarkable. 3. There is uniform thickening of the urinary bladder wall which is either related to cystitis or und er distension or a combination of both. Report called by myself to ER provider 05/09/2024 at 6:40 p.m. RADIATION DOSE DELIVERED: 386.64mGy.cm Total DLP DATA REPOSITORY: All CT scans at this facility are submitted to the National Radiology Data Registry (NRDR) Dose Index Registry (DIR) with the [employer] (ACR). RADIATION OPTIMIZATION: All CT scans at this facility use at least one of these dose optimization te chniques: automated exposure control; mA and/or kV adjustment per patient size (includes targeted exa ms where dose is matched to clinical indication); or iterative reconstruction.
[2024-05-09] MEDS: Ketorolac 15 MG/ML VIAL IVP (17:07)
[2024-05-09 17:20] LABS: Abs Immature Grans 0.01 10^3/uL (0.0-0.06); Absolute Basophil Count 0.11 10^3/uL (0.0-0.2); Absolute Eosinophil Count 0.29 10^3/uL (0.0-0.7); Absolute Lymphocyte Count 1.84 10^3/uL (1.2-3.4); Absolute Monocyte Count 0.61 10^3/uL (0.1-0.8); Absolute Neutrophil Count 3.88 10^3/uL (1.2-6.7); Basophils % 1.6 %; Eosinophils % 4.3 %; HCT 42.8 % (40.0-50.0); HGB 14.7 g/dL (13.5-17.5); Immature Grans % 0.1 %; Lymphocytes % 27.3 %; MCH 32.5 pg (27.0-33.0); MCHC 34.3 % (32.0-36.0); MCV 95 fL (80-95); MPV 10.1 fL (8.0-11.0); Monocytes % 9.1 %; Neutrophils % 57.6 %; Platelet Count 258 10^3/uL (130-400); RBC 4.52 10^6/uL (4.36-5.78); RDW 11.9 % (11.8-14.1); RDW-SD 41.2 fL; WBC 6.74 10^3/uL (4.4-10.8)
[2024-05-09] MEDS: Ondansetron 4 MG/2 ML VIAL IVP (17:22)
[2024-05-09 17:35] LABS: ALT 45 U/L (16-63); AST 20 U/L (15-37); Albumin 4.1 g/dL (3.4-5.0); Alkaline Phosphatase 72 U/L (46-116); Anion Gap 5.4 mmol/L (3-11); BUN 12 mg/dL (7-18); Bilirubin, Total 0.21 mg/dL (0.2-1.0); CO2 31.6 mmol/L (21.0-32.0); CREATININE 1.1 mg/dL (0.70-1.30); Calcium 9.7 mg/dL (8.5-10.1); Chloride 104 mmol/L (98-107); Estimated GFR 89.22 (mL/min/1.73m2); Glucose 102 mg/dL (74-106); Potassium 3.9 mmol/L (3.5-5.1); Sodium 141 mmol/L (136-145); Total Protein 7.6 g/dL (6.4-8.2)
--- NOTE | 2024-05-09 17:40 | ED.GENADUL_ITS ---
Discharge Plan Disposition Patient Disposition: Home Discharge Details Clinical Impression: Congenital obstruction of ureteropelvic junction (UPJ) Primary Care Provider: Preet Clancy ED Provider: Judy Dennis Home Meds and New Rx's Prescriptions: No Action ibuprofen 600 mg tablet 600 mg PO TID PRN (Reason: pain) Qty: 270 3RF acetaminophen 500 mg tablet 1,000 mg PO Q6H PRN Discharge Instructions Additional Instructions: Please call Dr. Juan's office first thing in the morning to see if you can move your appointment sooner. If you are unable to follow-up with Dr. Juan, I recommend that you reach out to [facility] urology. You can make an appointment with Dr. Woodruff or Dr. Couch. The phone number is [phone]. Please stay well-hydrated. You may use ibuprofen 600 milligrams every 6 hours as needed for discomfort. You may also add in Tylenol 650 mg every 4-6 hours as needed. For severe pain you may use the morphine p.o. provided. Return to emergency care if you develop new/worsening pain, difficulty urinating, inability to hold down fluids, fevers associated with back/lower abdominal/testicular pain, or if you are very worried and need to be rechecked again immediately. Discharge Data Discharge Date/Time-TO BE ENTERED AT DEPARTURE: 05/09/24 20:52 HPI General Date/Time Provider Initiated Documentation: 05/09/24 16:53 . HPI Narrative: Eladio (preferred name Steve) is a 38 year old male who presents to the emergency department today for evaluation of R sided back pain radiating into the RLQ and testicle. Reports the pain started this morning upon waking in his lower back this morning, initially radiated into his buttock. He has since moved into his right lower quadrant, and is now affecting his right testicle. He says the pain is severe, has caused him to have nausea. He was able to eat breakfast this morning, but has unable to eat since then. Denies associated fever/chills, recent illness, vomiting, change in bladder or bowel function, hematuria, dysuria or foul odor to urine. Denies recent trauma or inciting incident past medical history is significant for vasectomy and varicocele surgery Physical exam remarkable for uncomfortable patient. Abdomen is soft, tender to palpation especially in the right lower quadrant. No abdominal distention, rigidity, guarding, or ecchymosis noted. He does have tenderness with palpation of right lower back, no CVA tenderness. He does have tenderness with palpation of right testicle and along right side of groin. No color change change or swelling to testicles noted. Normal heart sounds. Easy work of breathing, lung sounds clear bilaterally. D/dx includes but is not limited to: Nephrolithiasis, pyelonephritis, muscle spasm, appendicitis, atypical diverticulitis, pancreatitis, hepatitis I independently interpreted the following tests: CBC, BMP reassuring. UA significant for 100 protein and trace lysed blood. He does have a history of 30 protein on 12/01/2023. While in the emergency department, Steve received Toradol for discomfort, which provided good pain control for the first [address] Craft, [facility] urology. He says that this is consistent with congenital UPJ obstruction that has now become symptomatic. Recommends outpatient follow-up for repair. He has been seen by Dr. Juan, has an appointment in June. I advised him to call earlier to reschedule a sooner appointment. If he would like to follow-up with [facility] urology, he may see Dr. Couch or Ranjan. Reviewed discharge instructions with patient, including symptomatic management, importance of good hydration, follow-up with urology, and red flags indicating need for return to emergency care Related Data Home Medications ?Medication ?Instructions ?Recorded ?Confirmed ibuprofen 600 mg tablet 600 mg PO TID PRN pain #270 tabs 05/07/23 12/10/23 acetaminophen 500 mg tablet 1,000 mg PO Q6H PRN 11/30/23 12/10/23 Previous Rx's ?Medication ?Instructions ?Recorded ibuprofen 600 mg tablet 600 mg PO TID PRN pain #270 tabs 05/07/23 Allergies Allergy/AdvReac Type Severity Reaction Status Date / Time No Known Allergies Allergy Verified 12/10/23 09:46 General Stated Complaint: Abd Prob COLE: 3 Review of Systems Narrative: see HPI Exam Const General: cooperative, healthy appearing, no acute distress, well developed and other (appears uncomfortable) Nutritional Appearance: average body habitus Orientation: alert and oriented x3 Resp Effort & Inspection: normal respiratory effort and able to speak in complete sentences Auscultation: clear to auscultation bilaterally Cardio Rate: regular rate Rhythm: regular rhythm GI Inspection: normal to inspection and non-distended Palpation: soft, not rigid and tender in the RLQ Auscultation: normal bowel sounds Male General Exam: Yes normal external exam Penis: normal penis Scrotum: scrotum normal Testes: normal and testicular lie normal Back/Spine/Pelvis Back: no CVA tenderness Skin General skin exam: no rashes or lesions noted Course Vital Signs Vital signs: Vital Signs Temperature 36.6 C 05/09/24 16:47 Pulse 60 05/09/24 16:47 Respiratory Rate 18 05/09/24 16:47 Blood Pressure 141/73 H 05/09/24 16:47 Pulse Oximetry 97 05/09/24 16:47 Temperature 36.6 C 05/09/24 16:47 Temperature Source Oral 05/09/24 16:47 Pulse 66 05/09/24 16:59 Respiratory Rate 17 05/09/24 16:59 Blood Pressure 160/76 H 05/09/24 16:59 Blood Pressure Position Sitting 05/09/24 16:47 Pulse Oximetry 98 05/09/24 16:59 Oxygen Delivery Method Room Air 05/09/24 16:59 Oxygen Flow Rate 0 05/09/24 16:47 Pain Level 10 05/09/24 17:07 Lab/Test Results Lab/Test Results: Laboratory Tests Range/Units 05/09/24 17:00 WBC (4.4-10.8) 10^3/uL 6.74 RBC (4.36-5.78) 10^6/uL 4.52 Hgb (13.5-17.5) g/dL 14.7 Hct (40.0-50.0) % 42.8 MCV (80-95) fL 95 MCH (27.0-33.0) pg 32.5 MCHC (32.0-36.0) % 34.3 RDW (11.8-14.1) % 11.9 Plt Count (130-400) 10^3/uL 258 MPV (8.0-11.0) fL 10.1 Immature Gran % % 0.1 Neutrophils % % 57.6 Lymphocytes % % 27.3 Monocytes % % 9.1 Eosinophils % % 4.3 Basophils % % 1.6 Nucleated RBC % (0.0-0.3) % 0.0 Absolute Neutrophils (1.2-6.7) 10^3/uL 3.88 Absolute Lymphocytes (1.2-3.4) 10^3/uL 1.84 Absolute Monocytes (0.1-0.8) 10^3/uL 0.61 Absolute Eosinophils (0.0-0.7) 10^3/uL 0.29 Absolute Basophils (0.0-0.2) 10^3/uL 0.11 Sodium (136-145) mmol/L 141 Potassium (3.5-5.1) mmol/L 3.9 Chloride (98-107) mmol/L 104 Carbon Dioxide (21.0-32.0) mmol/L 31.6 Anion Gap (3-11) mmol/L 5.4 BUN (7-18) mg/dL 12 Creatinine (0.70-1.30) mg/dL 1.1 Est GFR (CKD-EPI 2020) (mL/min/1.73m2) 89.22 Glucose (74-106) mg/dL 102 Calcium (8.5-10.1) mg/dL 9.7 Total Bilirubin (0.2-1.0) mg/dL 0.21 AST (15-37) U/L 20 ALT (16-63) U/L 45 Alkaline Phosphatase (46-116) U/L 72 Total Protein (6.4-8.2) g/dL 7.6 Albumin (3.4-5.0) g/dL 4.1 Medical Decision Making Quality:SDOH Health Related Social Needs: No Data to Display PFSH All Active Problems (Updated 05/09/24 @ 20:18 by Judy To) Congenital obstruction of ureteropelvic junction (UPJ) (Acute) History of alcohol use (Acute) Thrombocytopenia (Chronic) Elevated LFTs (Acute) Elevated troponin I level (Acute) Tobacco use disorder (Chronic) Medical History 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 Groin strain Varicocele Hydronephrosis, right Post concussion syndrome Alcohol intoxication blunt head trauma Family History Father Alcohol abuse Mother Anxiety Depression Maternal Grandfather Heart disease Hyperlipidemia Hypertension Paternal Grandfather Heart disease Hyperlipidemia Hypertension Alcohol abuse Maternal Grandmother Diabetes Paternal Uncle Cancer Paternal Grandmother Diabetes Brother Anxiety Drug abuse Social History Smoking/Tobacco Use Status: Current every day Tobacco Type: cigarettes Tobacco: How many years used: 15 Quit status: considering quitting Smoking risk assessment performed?: Yes Alcohol Intake: current Alcohol Intake frequency: 3 or more drinks per day Alcohol type: beer Drug use: Never Substance use type: does not use Details: HASN'T DRANK IN 6 DAYS Adopted: No Caregiver/Support person: No Household members: spouse and children Housing: house Number of Children: 1 Communication Needs: None Education Level: high school Do you need help understanding health information?: Rarely 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 Pets and animals: Yes Pets and animals: dog(s) Sexually active: Yes Do you think of yourself as: straight/heterosexual Current gender identity: male What is your relationship status?: How often do you talk on the phone with friends or family?: three or more times per week How often do you get together with friends or relatives?: twice per week Do you belong to any clubs or organized social groups?: no Panel score (0-1 are the most socially isolated patients): 2 What type of physical activity do you participate in: walking and other Details: hiking Duration: 45-60 minutes/day Frequency: daily Alee/Restorationist: None Special alee needs: No Seatbelt use: always Helmet use: Yes Drive intox or ride w/intox mule driver: No Do you feel safe at home: Yes Do you feel safe in your relationship?: Yes
[2024-05-09] MEDS: Normal Saline - Diluent 50 ML VIAL IJ (18:04)
[2024-05-09] MEDS: Omnipaque 350 MG/ML 100 ML BTL IJ (18:05)
[2024-05-09 19:15] LABS: Bilirubin Negative (Negative); Blood Trace-lysed (Negative); Clarity Clear (Clear); Glucose Negative (Negative); Ketones Negative (Negative); Leukocyte Esterase Negative (Negative); Nitrite Negative (Negative); Urobilinogen 0.2 mg/dL (Up to 0.2)
[2024-05-09 19:23] LABS: Bacteria Negative HPF (Negative); Epithelial Cells Rare HPF (Negative); WBC Negative HPF (0-5)
[2024-05-09 19:24] LABS: C & S Indicated? No; Casts Negative LPF (Negative); Crystals Negative HPF (Negative); Mucus Trace (Negative)
[2024-05-09] MEDS: MORPHine 4 MG/ML SYR IVP (20:03)
[2024-05-09] MEDS: MORPHine IR 15 MG TAB, 4 TABS/BTL PO (20:33)
== END 2024-05-09 20:52 | disposition home or self-care (01) ==
PROVIDERS: Emergency Provider Nurse Practitioner Family; PCP Family Medicine
DX: Q62.39 Other obstructive defects of renal pelvis and ureter (principal); F17.210 Nicotine dependence, cigarettes, uncomplicated
CPT/HCPCS: 80053; 96374; 96375; 99285; 74177; 81003; 81015; 85025; J1885; J2270; J2405; J3490